=== PATIENT | male | born 1945 | race African-American/Black ===

== ENCOUNTER 2020-07-23 10:57 | Inpatient (IN) | payer OTHER, MEDICARE ==
--- NOTE | 2020-07-23 11:24 | Emergency Department Report ---
ED General Adult HPI - General Chief complaint: Weakness Stated complaint: SOB/WEAKNESS PUI?: Yes Time Seen by Provider: 07/23/20 11:07 Source: patient, EMS ( EMS documentation not available at time of chart dictation ), RN notes reviewed Mode of arrival: Stretcher Limitations: No Limitations, Language Barrier - History of Present Illness Initial comments: The patient was evaluated in the emergency department for symptoms described in the history of present illness. He/she was evaluated in the context of the global COVID-19 pandemic, which necessitated consideration that the patient might be at risk for infection with the virus that causes COVID-19. Institutional protocols and algorithms that pertain to the evaluation of patients at risk for COVID-19 are in a state of rapid change based on information released by regulatory bodies including the CDC and federal and state organizations. These policies and algorithms were followed during the patient's care in the emergency department. Please note that these policies, procedures and recommendations changed on a rapid basis. Patient is a 75-year-old gentleman. He reportedly has a history of heart disease. During the entire history and physical examination, I had on complete personal protective equipment. History obtained by speaking to the patient, and by obtaining collateral information from nursing team, who is conversant/fluid in the patient's [place] language. I called up our peer support specialist service, waited on the phone for 10 minutes, was disconnected, and was not able to obtain a formal [place] peer support specialist. The patient was reportedly diagnosed with COVID-19 this past Sunday, 5 days ago. Apparently, 1 day before that, he began to have generalized malaise and weakness. He was brought in today by EMS with a complaint of malaise, weakness, shortness of breath. Nursing team informs me that the patient was hypoxic in the field, with a saturation of 88%. The patient indicates he is not having physical pain at this time. Patient not accompanied by friends or family at this time for additional information or collateral information. -: Gradual, days(s) - Related Data Allergies Allergy/AdvReac Type Severity Reaction Status Date / Time No Known Allergies Allergy Unverified 07/23/20 12:26 ED Review of Systems ROS: Stated complaint: SOB/WEAKNESS Other details as noted in HPI Constitutional: fever, malaise, weakness ENT: congestion Respiratory: cough, SOB with exertion Neurological: weakness ED Physical Exam - General Limitations: Language Barrier, Physical Limitation General appearance: alert - Head Head exam: Present: atraumatic, normocephalic - Eye Eye exam: Present: normal appearance, EOMI. Absent: nystagmus - ENT ENT exam: Present: normal exam, normal orophraynx, mucous membranes moist, normal external ear exam - Neck Neck exam: Present: normal inspection, full ROM. Absent: tenderness, meningismus - Respiratory Respiratory exam: Present: respiratory distress, rhonchi. Absent: wheezes, rales, stridor - Cardiovascular Cardiovascular Exam: Present: regular rate, normal rhythm, normal heart sounds. Absent: bradycardia, tachycardia, irregular rhythm, systolic murmur, diastolic murmur, rubs, gallop - GI/Abdominal GI/Abdominal exam: Present: soft. Absent: distended, tenderness, guarding, rebound, rigid, pulsatile mass - Rectal Rectal exam: Present: deferred - Extremities Exam Extremities exam: Present: normal inspection, full ROM, other (2+ pulses noted in the bilateral upper and lower extremities. There is no palpable cord. negative Homans sign. Muscular compartments are soft. The pelvis is stable.). Absent: pedal edema, calf tenderness - Back Exam Back exam: Present: normal inspection, full ROM. Absent: tenderness, CVA tenderness (R), CVA tenderness (L), paraspinal tenderness, vertebral tenderness - Neurological Exam Neurological exam: Present: alert, other (No facial droop. Tongue midline. Extraocular movements intact bilaterally. Facial sensation intact to light touch in V1, V2, V3 distribution bilaterally. 5 and a 5 strength in 4 extremities. Sensation intact to light touch in 4 extremities.) - Psychiatric Psychiatric exam: Present: normal affect, normal mood - Skin Skin exam: Present: warm, dry, intact, normal color. Absent: rash ED Course Vital Signs 07/23/20 11:11 Temperature 99.9 F H Pulse Rate 82 Respiratory 24 Rate Blood Pressure 134/57 O2 Sat by Pulse 98 Oximetry ED Medical Decision Making - Lab Data Result diagrams: 07/23/20 11:50 07/23/20 11:50 Vital Signs 07/23/20 11:11 Temperature 99.9 F H Pulse Rate 82 Respiratory 24 Rate Blood Pressure 134/57 O2 Sat by Pulse 98 Oximetry Lab Results 07/23/20 07/23/20 07/23/20 Range/Units 11:50 11:50 11:50 WBC 8.3 (4.5-11.0) K/mm3 RBC 3.68 (3.65-5.03) M/mm3 Hgb 10.8 (10.1-14.3) gm/dl Hct 32.3 (30.3-42.9) % MCV 88 (79-97) fl MCH 29 (28-32) pg MCHC 34 (30-34) % RDW 14.8 (13.2-15.2) % Plt Count 142 (140-440) K/mm3 Lymph % (Auto) 5.4 L (13.4-35.0) % [place] % (Auto) 4.3 (0.0-7.3) % Eos % (Auto) 0.1 (0.0-4.3) % Baso % (Auto) 0.2 (0.0-1.8) % Lymph # (Auto) 0.4 L (1.2-5.4) K/mm3 [place] # (Auto) 0.4 (0.0-0.8) K/mm3 Eos # (Auto) 0.0 (0.0-0.4) K/mm3 Baso # (Auto) 0.0 (0.0-0.1) K/mm3 Seg Neutrophils % 90.0 H (40.0-70.0) % Seg Neutrophils # 7.5 (1.8-7.7) K/mm3 D-Dimer 545.57 H (0-234) ng/mlDDU Sodium 136 L (137-145) mmol/L Potassium 3.5 L (3.6-5.0) mmol/L Chloride 102.3 (98-107) mmol/L Carbon Dioxide 24 (22-30) mmol/L Anion Gap 13 mmol/L BUN 13 (9-20) mg/dL Creatinine 0.9 (0.8-1.3) mg/dL Estimated GFR > 60 ml/min BUN/Creatinine Ratio 14 % Glucose 167 H (75-100) mg/dL Lactic Acid (0.7-2.0) mmol/L Calcium 8.2 L (8.4-10.2) mg/dL Magnesium (1.7-2.3) mg/dL Total Bilirubin 0.50 (0.1-1.2) mg/dL AST 47 H (5-40) units/L ALT 43 (7-56) units/L Alkaline Phosphatase 79 (35-129) units/L Lactate Dehydrogenase 291 H (91-180) units/L Total Creatine Kinase (55-170) units/L Troponin T < 0.010 (0.00-0.029) ng/mL C-Reactive Protein 29.20 H (0.00-1.30) mg/dL Total Protein 6.7 (6.3-8.2) g/dL Albumin 2.9 L (3.9-5) g/dL Albumin/Globulin Ratio 0.8 % 07/23/20 07/23/20 Range/Units 11:50 11:50 WBC (4.5-11.0) K/mm3 RBC (3.65-5.03) M/mm3 Hgb (10.1-14.3) gm/dl Hct (30.3-42.9) % MCV (79-97) fl MCH (28-32) pg MCHC (30-34) % RDW (13.2-15.2) % Plt Count (140-440) K/mm3 Lymph % (Auto) (13.4-35.0) % [place] % (Auto) (0.0-7.3) % Eos % (Auto) (0.0-4.3) % Baso % (Auto) (0.0-1.8) % Lymph # (Auto) (1.2-5.4) K/mm3 [place] # (Auto) (0.0-0.8) K/mm3 Eos # (Auto) (0.0-0.4) K/mm3 Baso # (Auto) (0.0-0.1) K/mm3 Seg Neutrophils % (40.0-70.0) % Seg Neutrophils # (1.8-7.7) K/mm3 D-Dimer (0-234) ng/mlDDU Sodium (137-145) mmol/L Potassium (3.6-5.0) mmol/L Chloride (98-107) mmol/L Carbon Dioxide (22-30) mmol/L Anion Gap mmol/L BUN (9-20) mg/dL Creatinine (0.8-1.3) mg/dL Estimated GFR ml/min BUN/Creatinine Ratio % Glucose (75-100) mg/dL Lactic Acid 2.00 (0.7-2.0) mmol/L Calcium (8.4-10.2) mg/dL Magnesium 1.80 (1.7-2.3) mg/dL Total Bilirubin (0.1-1.2) mg/dL AST (5-40) units/L ALT (7-56) units/L Alkaline Phosphatase (35-129) units/L Lactate Dehydrogenase (91-180) units/L Total Creatine Kinase 39 L (55-170) units/L Troponin T (0.00-0.029) ng/mL C-Reactive Protein (0.00-1.30) mg/dL Total Protein (6.3-8.2) g/dL Albumin (3.9-5) g/dL Albumin/Globulin Ratio % - EKG Data -: EKG Interpreted by Ok EKG shows normal: sinus rhythm Rate: normal - EKG Data When compared to previous EKG there are: previous EKG unavailable 07/23/20 14:07 Sinus rhythm, 87 bpm, normal axis, QTC is prolonged, motion artifact, right bundle branch block, the EKG is abnormal, the EKG is not a STEMI Do not have a prior EKG available for comparison at this time. - Radiology Data Radiology results: report reviewed, image reviewed Print Report Referring Physician: CHARY WILSON Patient Name: PENNY SAUCEDO Date of : 1945 Sex: Male Report Date: 2020-07-23 Report Status: Finalized Findings [facility] [address] [place] [address] XRay Report Signed Patient: PENNY SAUCEDO MR#: [id number] 46 : 1945 ct:[id number] Age/Sex: 75 / M ADM Date: 07/23/20 Loc: ED Attending Dr: Ordering Physician: CHARY WILSON MD Date of Service: 07/23/20 Procedure(s): XR chest 1V ap Accession Number(s): [id number] cc: CHARY WILSON MD Fluoro Time In Minutes: CHEST 1 VIEW INDICATION: SOB COVID. COMPARISON: 06/10/2019 FINDINGS: Support devices: None. Heart: Within normal limits. Previous CABG changes are noted. Lungs/Pleura: Subtle airspace opacities are identified in the right upper lobe and left lower lobe which could be infectious in origin. No consolidation, pleural effusion or pneumothorax. Additional findings: None. IMPRESSION: Subtle bilateral airspace opacities as described. Viral infection could be considered. Signer Name: Shamar Juarez Jr, MD Signed: 07/23/2020 12:36 PM Workstation Name: [id number] Transcribed By: TTR Dictated By: SHAMAR JUAREZ JR, MD Electronically Authenticated By: SHAMAR JUAREZ JR, MD Signed Date/Time: 07/23/20 1236 DD/ 1235 TD/TT: - Medical Decision Making Differential diagnosis, including but not limited to: COVID-19, pneumonia, bacterial versus viral Assessment and plan: 75-year-old gentleman presenting during the Covid pandemic with hypoxia, and typical constitutional symptoms. Patient meets criteria for hospitalization/admission secondary to hypoxia, need for supplemental oxygen requirement, advanced age, and medical comorbidities. Laboratory studies are sent to risk stratify patient for cytokine storm. Patient will be treated empirically with steroids given hypoxia, ceftriaxone, and azithromycin. He reported to nursing team that he was taking quite a bit of acetaminophen, so we will check an acetaminophen level. This is pending at this time. As a courtesy, we will place an ID consult and defer to the inpatient team to further follow this up. The hospital physician, Dr. Angel Wang has agreed to admit the patient to the medical service for the aforementioned. Critical Care Time: Yes Critical care time in (mins) excluding proc time.: 35 Critical care attestation.: If time is entered above; I have spent that time in minutes in the direct care of this critically ill patient, excluding procedure time. ED Disposition Clinical Impression: Hypoxia, Suspected 2019 novel coronavirus infection, Pulmonary infiltrates Disposition: OP ADMIT IP TO THIS HOSP Is pt being admited?: Yes Does the pt Need Aspirin: No Condition: Serious
[2020-07-23 12:26] LABS: Basophils % (Auto) 0.2 % (0.0-1.8); Eosinophils % (Auto) 0.1 % (0.0-4.3); Hematocrit 32.3 % (30.3-42.9); Hemoglobin 10.8 gm/dl (10.1-14.3); Lymphocytes # (Auto) 0.4 K/mm3 (1.2-5.4); Lymphocytes % (Auto) 5.4 % (13.4-35.0); Mean Corpuscular HGB Conc 34 % (30-34); Mean Corpuscular Volume 88 fl (79-97); Monocytes # (Auto) 0.4 K/mm3 (0.0-0.8); Monocytes % (Auto) 4.3 % (0.0-7.3); Platelet Count 142 K/mm3 (140-440); Red Blood Count 3.68 M/mm3 (3.65-5.03); Red Cell Distribution Width 14.8 % (13.2-15.2)
--- NOTE | 2020-07-23 12:40 | XRay Report ---
CHEST 1 VIEW INDICATION: SOB COVID. COMPARISON: 06/10/2019 FINDINGS: Support devices: None. Heart: Within normal limits. Previous CABG changes are noted. Lungs/Pleura: Subtle airspace opacities are identified in the right upper lobe and left lower lobe wh ich could be infectious in origin. No consolidation, pleural effusion or pneumothorax. Additional findings: None. IMPRESSION: Subtle bilateral airspace opacities as described. Viral infection could be considered. Signer Name: Shamar Juarez Jr, MD Signed: 07/23/2020 12:36 PM Workstation Name: [id number]
[2020-07-23] MEDS ORDERED: SODIUM CHLORIDE 0.9% 500 ML 500 ML IV ONE (12:53)
[2020-07-23] MEDS ORDERED: cefTRIAXone/NS 1 GM/50 ML 1 GM/50 ML BAG IV ONE ×2 (12:53→13:30)
[2020-07-23] MEDS ORDERED: dexAMETHasone 4 MG/ML VIAL IV ONE (12:53)
[2020-07-23 13:16] LABS: Alanine Aminotransferase 43 units/L (7-56); Albumin 2.9 g/dL (3.9-5); BUN/Creatinine Ratio 14; Blood Urea Nitrogen 13 mg/dL (9-20); Calcium 8.2 mg/dL (8.4-10.2); Hemolysis Index 2
[2020-07-23] MEDS ORDERED: dexAMETHasone 4 MG/ML VIAL ONE (13:30)
[2020-07-23] MEDS ORDERED: AZITHROMYCIN 500 MG in SODIUM CHLORIDE 0.9% 250ML 250 ML IV NR (13:30)
[2020-07-23] MEDS ORDERED: SODIUM CHLORIDE 0.9% 500 ML 500 ML ONE (13:30)
[2020-07-23 16:12] LABS: Bilirubin,Urine NEG (Negative); Blood,Urine NEG (Negative); Color,Urine Yellow (Yellow); Urobilinogen,Urine < 2.0 mg/dL (<2.0); WBC,Urine < 1.0 /HPF (0.0-6.0)
--- NOTE | 2020-07-23 23:32 | History and Physical Report ---
History of Present Illness Date of examination: 07/23/20 Date of admission: 07/23/20 13:00 Chief complaint: Shortness of breath and cough for 3 days. History of present illness: 75-year-old Malt[place] male diagnosed significant past medical history comes in for increasing shortness of breath and generalized weakness. 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 Patient has generalized malaise and weakness. Patient was brought in by EMS because of shortness of breath. Patient was hypoxic with a saturation of 88% in the field. With oxygenation sup plements oxygen O2 sats improved to 93--94. Language barrier present. Could not get a proper history from the patient. Tried to use the metal furniture repairer service but was kept on hold for a long time. No fever or chills at this point. Medications and Allergies Allergies Allergy/AdvReac Type Severity Reaction Status Date / Time No Known Allergies Allergy Verified 07/23/20 15:11 Exam - Constitutional Vitals: Temp Pulse Resp BP Pulse Ox 99.0 F 81 18 127/58 95 07/23/20 20:24 07/23/20 20:24 07/23/20 20:24 07/23/20 21:25 07/23/20 21:12 General appearance: Present: no acute distress, well-nourished - EENT Eyes: Present: PERRL ENT: hearing intact, clear oral mucosa - Neck Neck: Present: supple, normal ROM - Respiratory Respiratory effort: normal Respiratory: bilateral: CTA, rhonchi (Scattered) - Cardiovascular Heart rate: 78 Rhythm: regular Heart Sounds: Present: S1 & S2. Absent: rub, click - Extremities Extremities: pulses symmetrical, No edema Peripheral Pulses: within normal limits - Abdominal General gastrointestinal: Present: soft, non-tender, non-distended, normal bowel sounds Male genitourinary: Present: normal - Integumentary Integumentary: Present: clear, warm, dry - Musculoskeletal Musculoskeletal: gait normal, strength equal bilaterally - Psychiatric Psychiatric: appropriate mood/affect, intact judgment & insight - Neurologic Neurologic: CNII-XII intact, moves all extremities HEART Score - HEART Score Troponin: Troponin T < 0.010 ng/mL (0.00-0.029) 07/23/20 11:50 Results - Labs CBC & Chem 7: 07/24/20 05:17 07/23/20 11:50 Labs: Laboratory Last Values WBC 8.3 K/mm3 (4.5-11.0) 07/23/20 11:50 RBC 3.68 M/mm3 (3.65-5.03) 07/23/20 11:50 Hgb 10.8 gm/dl (10.1-14.3) 07/23/20 11:50 Hct 32.3 % (30.3-42.9) 07/23/20 11:50 MCV 88 fl (79-97) 07/23/20 11:50 MCH 29 pg (28-32) 07/23/20 11:50 MCHC 34 % (30-34) 07/23/20 11:50 RDW 14.8 % (13.2-15.2) 07/23/20 11:50 Plt Count 142 K/mm3 (140-440) 07/23/20 11:50 Lymph % (Auto) 5.4 % (13.4-35.0) L 07/23/20 11:50 [place] % (Auto) 4.3 % (0.0-7.3) 07/23/20 11:50 Eos % (Auto) 0.1 % (0.0-4.3) 07/23/20 11:50 Baso % (Auto) 0.2 % (0.0-1.8) 07/23/20 11:50 Lymph # (Auto) 0.4 K/mm3 (1.2-5.4) L 07/23/20 11:50 [place] # (Auto) 0.4 K/mm3 (0.0-0.8) 07/23/20 11:50 Eos # (Auto) 0.0 K/mm3 (0.0-0.4) 07/23/20 11:50 Baso # (Auto) 0.0 K/mm3 (0.0-0.1) 07/23/20 11:50 Seg Neutrophils % 90.0 % (40.0-70.0) H 07/23/20 11:50 Seg Neutrophils # 7.5 K/mm3 (1.8-7.7) 07/23/20 11:50 D-Dimer 545.57 ng/mlDDU (0-234) H 07/23/20 11:50 Sodium 136 mmol/L (137-145) L 07/23/20 11:50 Potassium 3.5 mmol/L (3.6-5.0) L 07/23/20 11:50 Chloride 102.3 mmol/L (98-107) 07/23/20 11:50 Carbon Dioxide 24 mmol/L (22-30) 07/23/20 11:50 Anion Gap 13 mmol/L 07/23/20 11:50 BUN 13 mg/dL (9-20) 07/23/20 11:50 Creatinine 0.9 mg/dL (0.8-1.3) 07/23/20 11:50 Estimated GFR > 60 ml/min 07/23/20 11:50 BUN/Creatinine Ratio 14 % 07/23/20 11:50 Glucose 167 mg/dL (75-100) H 07/23/20 11:50 Lactic Acid 1.00 mmol/L (0.7-2.0) 07/23/20 16:10 Calcium 8.2 mg/dL (8.4-10.2) L 07/23/20 11:50 Magnesium 1.80 mg/dL (1.7-2.3) 07/23/20 11:50 Ferritin 1067.0 ng/mL (30.0-300.0) H 07/23/20 11:50 Total Bilirubin 0.50 mg/dL (0.1-1.2) 07/23/20 11:50 AST 47 units/L (5-40) H 07/23/20 11:50 ALT 43 units/L (7-56) 07/23/20 11:50 Alkaline Phosphatase 79 units/L (35-129) 07/23/20 11:50 Lactate Dehydrogenase 291 units/L (91-180) H 07/23/20 11:50 Total Creatine Kinase 39 units/L (55-170) L 07/23/20 11:50 Troponin T < 0.010 ng/mL (0.00-0.029) 07/23/20 11:50 C-Reactive Protein 29.20 mg/dL (0.00-1.30) H 07/23/20 11:50 Total Protein 6.7 g/dL (6.3-8.2) 07/23/20 11:50 Albumin 2.9 g/dL (3.9-5) L 07/23/20 11:50 Albumin/Globulin Ratio 0.8 % 07/23/20 11:50 Urine Color Yellow (Yellow) 07/23/20 15:51 Urine Turbidity Clear (Clear) 07/23/20 15:51 Urine pH 7.0 (5.0-7.0) 07/23/20 15:51 Ur Specific [place] 1.012 (1.003-1.030) 07/23/20 15:51 Urine Protein 30 mg/dl mg/dL (Negative) 07/23/20 15:51 Urine Glucose (UA) Neg mg/dL (Negative) 07/23/20 15:51 Urine Ketones Tr mg/dL (Negative) 07/23/20 15:51 Urine Blood Neg (Negative) 07/23/20 15:51 Urine Nitrite Neg (Negative) 07/23/20 15:51 Urine Bilirubin Neg (Negative) 07/23/20 15:51 Urine Urobilinogen < 2.0 mg/dL (<2.0) 07/23/20 15:51 Ur Leukocyte Esterase Neg (Negative) 07/23/20 15:51 Urine WBC (Auto) < 1.0 /HPF (0.0-6.0) 07/23/20 15:51 Urine RBC (Auto) 4.0 /HPF (0.0-6.0) 07/23/20 15:51 Acetaminophen 5.0 ug/mL (10.0-30.0) L 07/23/20 13:02 Microbiology: Microbiology 07/23/20 11:50 Peripheral/Venous Blood Culture - Preliminary Culture in Progress 07/23/20 11:50 Peripheral/Venous Blood Culture - Preliminary Culture in Progress - Imaging and Cardiology Chest x-ray: report reviewed Imaging and Cardiology: CXR FINDINGS: Support devices: None. Heart: Within normal limits. Previous CABG changes are noted. Lungs/Pleura: Subtle airspace opacities are identified in the right upper lobe and left lower lobe which could be infectious in origin. No consolidation, pleural effusion or pneumothorax. Additional findings: None . IMPRESSION: Subtle bilateral airspace opacities as described. Viral infection could be considered. Khan/IV: IV Catheter Type [Right Wrist] Peripheral IV Assessment and Plan Advance Directives: Yes (Full code) VTE prophylaxis?: Chemical Plan of care discussed with patient/family: Yes - Patient Problems (1) Acute respiratory failure with hypoxia Current Visit: Yes Status: Acute Plan to address problem: Patient on oxygen supplements. Now requiring minimal oxygen supplements 3 to 5 L Patient admitted in isolation Possible coronavirus infection Coronavirus PCR requested (2) Bilateral pneumonia Current Visit: Yes Status: Acute Plan to address problem: For the time being treated as community-acquired pneumonia Patient initiated on IV ceftriaxone and IV Zithromax. (3) Suspected 2019 novel coronavirus infection Current Visit: Yes Status: Acute Plan to address problem: Check coronavirus PCR Patient is apparently coronavirus PCR +4 days ago on Sunday which is 07/19/2020 (4) Hyponatremia Current Visit: Yes Status: Acute Plan to address problem: Very mild Trend the sodium levels No IV fluids were given because of the possibility of coronavirus (5) Anemia Current Visit: Yes Status: Chronic Qualifiers: Anemia type: unspecified type Qualified Code(s): D64.9 - Anemia, unspecified Plan to address problem: Anemia work-up (6) DVT prophylaxis Current Visit: Yes Status: Acute Plan to address problem: Patient initiated on Lovenox and GI prophylaxis
[2020-07-23] MEDS ORDERED: ACETAMINOPHEN 325 MG TAB PO PRN (23:34)
[2020-07-23] MEDS ORDERED: ONDANSETRON 4 MG/2 ML INJ IV PRN (23:34)
[2020-07-24 06:34] LABS: Basophils % (Auto) 0.2 % (0.0-1.8); Hematocrit 31.8 % (35.5-45.6); Hemoglobin 10.7 gm/dl (11.8-15.2); Lymphocytes # (Auto) 0.5 K/mm3 (1.2-5.4); Lymphocytes % (Auto) 7.9 % (13.4-35.0); Mean Corpuscular HGB Conc 34 % (32-34); Mean Corpuscular Volume 87 fl (84-94); Monocytes # (Auto) 0.4 K/mm3 (0.0-0.8); Monocytes % (Auto) 5.7 % (0.0-7.3); Platelet Count 153 K/mm3 (140-440); Red Blood Count 3.67 M/mm3 (3.65-5.03); Red Cell Distribution Width 14.8 % (13.2-15.2)
--- NOTE | 2020-07-24 06:52 | History and Physical Report ---
History of Present Illness Date of examination: 07/23/20 Date of admission: 07/23/20 13:00 Chief complaint: Shortness of breath and cough for 3 days. History of present illness: 75-year-old Nepali male diagnosed significant past medical history comes in for increasing shortness of breath and generalized weakness. 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 Patient has generalized malaise and weakness. Patient was brought in by EMS because of shortness of breath. Patient was hypoxic with a saturation of 88% in the field. With oxygenation sup plements oxygen O2 sats improved to 93--94. Language barrier present. Could not get a proper history from the patient. Tried to use the reinforced ironworker service but was kept on hold for a long time. No fever or chills at this point. Past History Past Medical History: No medical history Past Surgical History: No surgical history Social history: full code Family history: hypertension Medications and Allergies Allergies Allergy/AdvReac Type Severity Reaction Status Date / Time No Known Allergies Allergy Verified 07/23/20 15:11 Active Meds: Active Medications Acetaminophen (Tylenol) 650 mg PO Q4H PRN PRN Reason: Pain MILD(1-3)/Fever >100.5/PHILLIPS Cholecalciferol (Vitamin D3) 10,000 unit PO DAILY [facility] Dexamethasone (Decadron) 8 mg IV Q24HR [facility] Enoxaparin Sodium (Enoxaparin) 40 mg SUB-Q QDAY@2200 AZAR; Protocol Famotidine (Pepcid) 20 mg PO BID AZAR Hydromorphone HCl (Dilaudid) 0.5 mg IV Q3H PRN PRN Reason: Pain , Severe (7-10) Ceftriaxone Sodium (Rocephin/Ns 2 Gm/100 Ml) 2 gm in 100 mls @ 200 mls/hr IV Q24HR [facility]AR; Protocol Azithromycin 500 mg/ Sodium (Chloride) 250 mls @ 250 mls/hr IV Q24HR AZAR; Protocol Ondansetron HCl (Zofran) 4 mg IV Q8H PRN PRN Reason: Nausea And Vomiting Oxycodone/Acetaminophen (Percocet 5/325) 1 tab PO Q6H PRN PRN Reason: Pain, Moderate (4-6) Sodium Chloride (Sodium Chloride Flush Syringe 10 Ml) 10 ml IV BID AZAR Sodium Chloride (Sodium Chloride Flush Syringe 10 Ml) 10 ml IV PRN PRN PRN Reason: LINE FLUSH Zinc Sulfate (Zinc Sulfate) 220 mg PO QDAY AZAR Review of Systems All systems: negative Respiratory: cough, shortness of breath, congestion Exam - Constitutional Vitals: Temp Pulse Resp BP Pulse Ox 97.8 F 83 16 129/61 90 07/24/20 03:42 07/24/20 03:42 07/24/20 03:42 07/24/20 03:42 07/24/20 03:42 General appearance: Present: mild distress, well-nourished - EENT Eyes: Present: PERRL ENT: hearing intact, clear oral mucosa - Neck Neck: Present: supple, normal ROM - Respiratory Respiratory effort: normal Respiratory: bilateral: CTA, rhonchi (Scattered), wheezing - Cardiovascular Heart rate: 78 Rhythm: regular Heart Sounds: Present: S1 & S2. Absent: rub, click - Extremities Extremities: pulses symmetrical, No edema Peripheral Pulses: within normal limits - Abdominal General gastrointestinal: Present: soft, non-tender, non-distended, normal bowel sounds Male genitourinary: Present: normal - Integumentary Integumentary: Present: clear, warm, dry - Musculoskeletal Musculoskeletal: gait normal, strength equal bilaterally - Psychiatric Psychiatric: appropriate mood/affect, intact judgment & insight - Neurologic Neurologic: CNII-XII intact, moves all extremities HEART Score - HEART Score Troponin: Troponin T < 0.010 ng/mL (0.00-0.029) 07/23/20 11:50 Results - Labs CBC & Chem 7: 07/24/20 05:17 07/23/20 11:50 Labs: Laboratory Last Values WBC 6.3 K/mm3 (4.5-11.0) 07/24/20 05:17 RBC 3.67 M/mm3 (3.65-5.03) 07/24/20 05:17 Hgb 10.7 gm/dl (11.8-15.2) L 07/24/20 05:17 Hct 31.8 % (35.5-45.6) L 07/24/20 05:17 MCV 87 fl (84-94) 07/24/20 05:17 MCH 29 pg (28-32) 07/24/20 05:17 MCHC 34 % (32-34) 07/24/20 05:17 RDW 14.8 % (13.2-15.2) 07/24/20 05:17 Plt Count 153 K/mm3 (140-440) 07/24/20 05:17 Lymph % (Auto) 7.9 % (13.4-35.0) L 07/24/20 05:17 [place] % (Auto) 5.7 % (0.0-7.3) 07/24/20 05:17 Eos % (Auto) 0.0 % (0.0-4.3) 07/24/20 05:17 Baso % (Auto) 0.2 % (0.0-1.8) 07/24/20 05:17 Lymph # (Auto) 0.5 K/mm3 (1.2-5.4) L 07/24/20 05:17 [place] # (Auto) 0.4 K/mm3 (0.0-0.8) 07/24/20 05:17 Eos # (Auto) 0.0 K/mm3 (0.0-0.4) 07/24/20 05:17 Baso # (Auto) 0.0 K/mm3 (0.0-0.1) 07/24/20 05:17 Seg Neutrophils % 86.2 % (40.0-70.0) H 07/24/20 05:17 Seg Neutrophils # 5.4 K/mm3 (1.8-7.7) 07/24/20 05:17 D-Dimer 545.57 ng/mlDDU (0-234) H 07/23/20 11:50 Sodium 136 mmol/L (137-145) L 07/23/20 11:50 Potassium 3.5 mmol/L (3.6-5.0) L 07/23/20 11:50 Chloride 102.3 mmol/L (98-107) 07/23/20 11:50 Carbon Dioxide 24 mmol/L (22-30) 07/23/20 11:50 Anion Gap 13 mmol/L 07/23/20 11:50 BUN 13 mg/dL (9-20) 07/23/20 11:50 Creatinine 0.9 mg/dL (0.8-1.3) 07/23/20 11:50 Estimated GFR > 60 ml/min 07/23/20 11:50 BUN/Creatinine Ratio 14 % 07/23/20 11:50 Glucose 167 mg/dL (75-100) H 07/23/20 11:50 Hemoglobin A1c 6.8 % (4-6) H 07/23/20 11:50 Lactic Acid 1.00 mmol/L (0.7-2.0) 07/23/20 16:10 Calcium 8.2 mg/dL (8.4-10.2) L 07/23/20 11:50 Magnesium 1.80 mg/dL (1.7-2.3) 07/23/20 11:50 Ferritin 1067.0 ng/mL (30.0-300.0) H 07/23/20 11:50 Total Bilirubin 0.50 mg/dL (0.1-1.2) 07/23/20 11:50 AST 47 units/L (5-40) H 07/23/20 11:50 ALT 43 units/L (7-56) 07/23/20 11:50 Alkaline Phosphatase 79 units/L (35-129) 07/23/20 11:50 Lactate Dehydrogenase 291 units/L (91-180) H 07/23/20 11:50 Total Creatine Kinase 39 units/L (55-170) L 07/23/20 11:50 Troponin T < 0.010 ng/mL (0.00-0.029) 07/23/20 11:50 C-Reactive Protein 29.20 mg/dL (0.00-1.30) H 07/23/20 11:50 Total Protein 6.7 g/dL (6.3-8.2) 07/23/20 11:50 Albumin 2.9 g/dL (3.9-5) L 07/23/20 11:50 Albumin/Globulin Ratio 0.8 % 07/23/20 11:50 Urine Color Yellow (Yellow) 07/23/20 15:51 Urine Turbidity Clear (Clear) 07/23/20 15:51 Urine pH 7.0 (5.0-7.0) 07/23/20 15:51 Ur Specific [place] 1.012 (1.003-1.030) 07/23/20 15:51 Urine Protein 30 mg/dl mg/dL (Negative) 07/23/20 15:51 Urine Glucose (UA) Neg mg/dL (Negative) 07/23/20 15:51 Urine Ketones Tr mg/dL (Negative) 07/23/20 15:51 Urine Blood Neg (Negative) 07/23/20 15:51 Urine Nitrite Neg (Negative) 07/23/20 15:51 Urine Bilirubin Neg (Negative) 07/23/20 15:51 Urine Urobilinogen < 2.0 mg/dL (<2.0) 07/23/20 15:51 Ur Leukocyte Esterase Neg (Negative) 07/23/20 15:51 Urine WBC (Auto) < 1.0 /HPF (0.0-6.0) 07/23/20 15:51 Urine RBC (Auto) 4.0 /HPF (0.0-6.0) 07/23/20 15:51 Acetaminophen 5.0 ug/mL (10.0-30.0) L 07/23/20 13:02 Microbiology: Microbiology 07/23/20 11:50 Peripheral/Venous Blood Culture - Preliminary Culture in Progress 07/23/20 11:50 Peripheral/Venous Blood Culture - Preliminary Culture in Progress - Imaging and Cardiology Chest x-ray: report reviewed (Chest x-ray bilateral airspace disease) Khan/IV: Voiding Method Toilet IV Catheter Type [Right Wrist] Peripheral IV Assessment and Plan Advance Directives: Yes (Full code) VTE prophylaxis?: Chemical Plan of care discussed with patient/family: Yes - Patient Problems (1) Acute respiratory failure with hypoxia Current Visit: Yes Status: Acute Plan to address problem: Patient on oxygen supplements. Now requiring minimal oxygen supplements 3 to 5 L Patient admitted in isolation Possible coronavirus infection Coronavirus PCR requested (2) Bilateral pneumonia Current Visit: Yes Status: Acute Plan to address problem: For the time being treated as community-acquired pneumonia Patient initiated on IV ceftriaxone and IV Zithromax. (3) Suspected 2019 novel coronavirus infection Current Visit: Yes Status: Acute Plan to address problem: Check coronavirus PCR Patient is apparently coronavirus PCR +4 days ago on Sunday which is 07/19/2020 (4) Hyponatremia Current Visit: Yes Status: Acute Plan to address problem: Very mild Trend the sodium levels No IV fluids were given because of the possibility of coronavirus (5) Anemia Current Visit: Yes Status: Chronic Qualifiers: Anemia type: unspecified type Qualified Code(s): D64.9 - Anemia, unspecifie d Plan to address problem: Anemia work-up (6) DVT prophylaxis Current Visit: Yes Status: Acute Plan to address problem: Patient initiated on Lovenox and GI prophylaxis
[2020-07-24 07:04] LABS: Alanine Aminotransferase 43 units/L (7-56); Blood Urea Nitrogen 16 mg/dL (9-20); Calcium 8.2 mg/dL (8.4-10.2); Hemolysis Index 1
[2020-07-24 07:34] LABS: BUN/Creatinine Ratio 23
[2020-07-24 08:27] LABS: % Iron Saturation 17.45 %
[2020-07-24] MEDS ORDERED: AZITHROMYCIN 500 MG in SODIUM CHLORIDE 0.9% 250ML 250 ML IV SCH (10:00)
[2020-07-24] MEDS ORDERED: cefTRIAXone/NS 2 GM/100 ML 2 GM/100 ML BAG IV SCH (10:00)
[2020-07-24] MEDS: CHOLECALCIFEROL (VIT D3) 5,000 UNIT TAB PO SCH (10:53)
[2020-07-24] MEDS: ASCORBIC ACID 500 MG TAB PO SCH ×2 (10:53→22:05)
[2020-07-24] MEDS: FAMOTIDINE 20 MG TAB PO SCH ×2 (10:53→22:05)
[2020-07-24] MEDS: dexAMETHasone 4 MG/ML VIAL IV SCH (10:53)
[2020-07-24] MEDS: ZINC SULFATE 220 MG CAP PO SCH (10:54)
[2020-07-24] MEDS ORDERED: FUROSEMIDE 40 MG/4 ML INJ IV ONE ×2 (12:00→13:00)
--- NOTE | 2020-07-24 12:42 | Progress Note ---
Assessment and Plan Assessment and plan: 75-year-old Cypriot male diagnosed significant past medical history comes in for increasing shortness of breath and generalized weakness. 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 Patient has generalized malaise and weakness. Patient was brought in by EMS because of shortness of breath. Patient was hypoxic with a saturation of 88% in the field. With oxygenation supplements oxygen O2 sats improved to 93--94. Language barrier present. Could not get a proper history from the patient. Tried to use the business analyst project manager service but was kept on hold for a long time. No fever or chills at this point. 07/24: This morning patient sitting up reported chills and shaking making him come to the hospital, continue current management for COVID-19. Will give Lasix 20 mg IV x1. Continue to monitor inflammatory markers while awaiting ID input. Will initiate remdesivir due to hypoxia. (1) Acute respiratory failure with hypoxia Current Visit: Yes Status: Acute Plan to address problem: Patient on oxygen supplements. Now requiring minimal oxygen supplements 3 to 5 L Patient admitted in isolation Possible coronavirus infection Coronavirus PCR requested (2) Bilateral pneumonia Current Visit: Yes Status: Acute Plan to address problem: For the time being treated as community-acquired pneumonia Patient initiated on IV ceftriaxone and IV Zithromax. (3) Suspected 2019 novel coronavirus infection Current Visit: Yes Status: Acute Plan to address problem: Check coronavirus PCR Patient is apparently coronavirus PCR +4 days ago on Sunday which is 07/19/2020 (4) Hyponatremia Current Visit: Yes Status: Acute Plan to address problem: Very mild Trend the sodium levels No IV fluids were given because of the possibility of coronavirus (5) Anemia Current Visit: Yes Status: Chronic Qualifiers: Anemia type: unspecified type Qualified Code(s): D64.9 - Anemia, unspecified Plan to address problem: Anemia work-up (6) DVT prophylaxis Current Visit: Yes Status: Acute Plan to address problem: Patient initiated on Lovenox and GI prophylaxis History Interval history: Patient seen and examined resting comfortably no new complaints. Hospitalist Physical - Physical exam Narrative exam: General appearance: Present: mild distress, well-nourished - EENT Eyes: Present: PERRL ENT: hearing intact, clear oral mucosa - Neck Neck: Present: supple, normal ROM - Respiratory Respiratory effort: normal Respiratory: bilateral: CTA, rhonchi (Scattered), wheezing - Cardiovascular Heart rate: 78 Rhythm: regular Heart Sounds: Present: S1 & S2. Absent: rub, click - Extremities Extremities: pulses symmetrical, No edema Peripheral Pulses: within normal limits - Abdominal General gastrointestinal: Present: soft, non-tender, non-distended, normal bowel sounds Male genitourinary: Present: normal - Integumentary Integumentary: Present: clear, warm, dry - Musculoskeletal Musculoskeletal: gait normal, strength equal bilaterally - Psychiatric Psychiatric: appropriate mood/affect, intact judgment & insight - Neurologic Neurologic: CNII-XII intact, moves all extremities - Constitutional Vitals: Temp Pulse Resp BP Pulse Ox 97.8 F 83 16 129/61 90 07/24/20 03:42 07/24/20 03:42 07/24/20 03:42 07/24/20 03:42 07/24/20 03:42 General appearance: Present: mild distress, well-nourished HEART Score - HEART Score Troponin: Troponin T < 0.010 ng/mL (0.00-0.029) 07/23/20 11:50 Results - Labs CBC & Chem 7: 07/24/20 05:17 07/24/20 05:17 Labs: Laboratory Last Values WBC 6.3 K/mm3 (4.5-11.0) 07/24/20 05:17 RBC 3.67 M/mm3 (3.65-5.03) 07/24/20 05:17 Hgb 10.7 gm/dl (11.8-15.2) L 07/24/20 05:17 Hct 31.8 % (35.5-45.6) L 07/24/20 05:17 MCV 87 fl (84-94) 07/24/20 05:17 MCH 29 pg (28-32) 07/24/20 05:17 MCHC 34 % (32-34) 07/24/20 05:17 RDW 14.8 % (13.2-15.2) 07/24/20 05:17 Plt Count 153 K/mm3 (140-440) 07/24/20 05:17 Lymph % (Auto) 7.9 % (13.4-35.0) L 07/24/20 05:17 [place] % (Auto) 5.7 % (0.0-7.3) 07/24/20 05:17 Eos % (Auto) 0.0 % (0.0-4.3) 07/24/20 05:17 Baso % (Auto) 0.2 % (0.0-1.8) 07/24/20 05:17 Lymph # (Auto) 0.5 K/mm3 (1.2-5.4) L 07/24/20 05:17 [place] # (Auto) 0.4 K/mm3 (0.0-0.8) 07/24/20 05:17 Eos # (Auto) 0.0 K/mm3 (0.0-0.4) 07/24/20 05:17 Baso # (Auto) 0.0 K/mm3 (0.0-0.1) 07/24/20 05:17 Seg Neutrophils % 86.2 % (40.0-70.0) H 07/24/20 05:17 Seg Neutrophils # 5.4 K/mm3 (1.8-7.7) 07/24/20 05:17 D-Dimer 545.57 ng/mlDDU (0-234) H 07/23/20 11:50 Sodium 140 mmol/L (137-145) 07/24/20 05:17 Potassium 3.8 mmol/L (3.6-5.0) 07/24/20 05:17 Chloride 105.2 mmol/L (98-107) 07/24/20 05:17 Carbon Dioxide 22 mmol/L (22-30) 07/24/20 05:17 Anion Gap 17 mmol/L 07/24/20 05:17 BUN 16 mg/dL (9-20) 07/24/20 05:17 Creatinine 0.7 mg/dL (0.8-1.3) L 07/24/20 05:17 Estimated GFR > 60 ml/min 07/24/20 05:17 BUN/Creatinine Ratio 23 % 07/24/20 05:17 Glucose 161 mg/dL (75-100) H 07/24/20 05:17 Hemoglobin A1c 6.8 % (4-6) H 07/23/20 11:50 Lactic Acid 1.00 mmol/L (0.7-2.0) 07/23/20 16:10 Calcium 8.2 mg/dL (8.4-10.2) L 07/24/20 05:17 Magnesium 1.80 mg/dL (1.7-2.3) 07/23/20 11:50 Iron 26 ug/dL (49-181) L 07/24/20 07:35 TIBC 149 mcg/dL (250-450) L 07/24/20 07:35 % Saturation 17.45 % 07/24/20 07:35 Transferrin 117 mg/dl (180-329) L 07/24/20 07:35 Ferritin 1067.0 ng/mL (30.0-300.0) H 07/23/20 11:50 Total Bilirubin 0.40 mg/dL (0.1-1.2) 07/24/20 05:17 AST 45 units/L (5-40) H 07/24/20 05:17 ALT 43 units/L (7-56) 07/24/20 05:17 Alkaline Phosphatase 78 units/L (35-129) 07/24/20 05:17 Lactate Dehydrogenase 291 units/L (91-180) H 07/23/20 11:50 Total Creatine Kinase 39 units/L (55-170) L 07/23/20 11:50 Troponin T < 0.010 ng/mL (0.00-0.029) 07/23/20 11:50 C-Reactive Protein 29.20 mg/dL (0.00-1.30) H 07/23/20 11:50 Total Protein 6.8 g/dL (6.3-8.2) 07/24/20 05:17 Albumin 3.0 g/dL (3.9-5) L 07/24/20 05:17 Albumin/Globulin Ratio 0.8 % 07/24/20 05:17 Vitamin B12 688.1 pg/mL (211-911) 07/24/20 07:35 Procalcitonin 0.49 ng/mL (<0.15) 07/23/20 11:50 Urine Color Yellow (Yellow) 07/23/20 15:51 Urine Turbidity Clear (Clear) 07/23/20 15:51 Urine pH 7.0 (5.0-7.0) 07/23/20 15:51 Ur Specific [place] 1.012 (1.003-1.030) 07/23/20 15:51 Urine Protein 30 mg/dl mg/dL (Negative) 07/23/20 15:51 Urine Glucose (UA) Neg mg/dL (Negative) 07/23/20 15:51 Urine Ketones Tr mg/dL (Negative) 07/23/20 15:51 Urine Blood Neg (Negative) 07/23/20 15:51 Urine Nitrite Neg (Negative) 07/23/20 15:51 Urine Bilirubin Neg (Negative) 07/23/20 15:51 Urine Urobilinogen < 2.0 mg/dL (<2.0) 07/23/20 15:51 Ur Leukocyte Esterase Neg (Negative) 07/23/20 15:51 Urine WBC (Auto) < 1.0 /HPF (0.0-6.0) 07/23/20 15:51 Urine RBC (Auto) 4.0 /HPF (0.0-6.0) 07/23/20 15:51 Acetaminophen 5.0 ug/mL (10.0-30.0) L 07/23/20 13:02 Microbiology: Microbiology 07/23/20 11:50 Peripheral/Venous Blood Culture - Preliminary Culture in Progress 07/23/20 11:50 Peripheral/Venous Blood Culture - Preliminary Culture in Progress Khan/IV: Voiding Method Toilet IV Catheter Type [Right Wrist] Peripheral IV Active Medications - Current Medications Current Medications: Generic Name Dose Route Start Last Admin Trade Name Freq PRN Reason Stop Dose Admin Acetaminophen 650 mg 07/23/20 23:34 Tylenol PO Q4H PRN Pain MILD(1-3)/Fever >100.5/PHILLIPS Ascorbic Acid 1,000 mg 07/24/20 10:00 07/24/20 10:53 Vitamin C PO 1,000 mg BID AZAR Administration Cholecalciferol 10,000 unit 07/24/20 10:00 07/24/20 10:53 Vitamin D3 PO 10,000 unit DAILY AZAR Administration Dexamethasone 8 mg 07/24/20 10:00 07/24/20 10:53 Decadron IV 8 mg Q24HR AZAR Administration Enoxaparin Sodium 40 mg 07/24/20 22:00 Enoxaparin SUB-Q QDAY@2200 [facility] Protocol Famotidine 20 mg 07/24/20 10:00 07/24/20 10:53 Pepcid PO 20 mg BID AZAR Administration Hydromorphone HCl 0.5 mg 07/23/20 23:34 Dilaudid IV Q3H PRN Pain , Severe (7-10) Ceftriaxone Sodium 2 gm in 100 mls @ 200 mls/hr 07/24/20 10:00 07/24/20 10:53 Rocephin/Ns 2 Gm/100 Ml IV 200 mls/hr Q24HR AZAR Administration Protocol Azithromycin 500 mg/ Sodium 250 mls @ 250 mls/hr 07/24/20 10:00 Chloride IV Q24HR AZAR Protocol Ondansetron HCl 4 mg 07/23/20 23:34 Zofran IV Q8H PRN Nausea And Vomiting Oxycodone/Acetaminophen 1 tab 07/23/20 23:34 Percocet 5/325 PO Q6H PRN Pain, Moderate (4-6) Sodium Chloride 10 ml 07/24/20 10:00 07/24/20 10:54 Sodium Chloride Flush Syringe 10 Ml IV 10 ml BID AZAR Administration Sodium Chloride 10 ml 07/23/20 23:34 Sodium Chloride Flush Syringe 10 Ml IV PRN PRN LINE FLUSH Zinc Sulfate 220 mg 07/24/20 10:00 07/24/20 10:54 Zinc Sulfate PO 220 mg QDAY AZAR Administration
[2020-07-24] MEDS ORDERED: REMDESIVIR 200 MG in SODIUM CHLORIDE 0.9% 250ML 250 ML IV ONE (12:43)
[2020-07-24] MEDS ORDERED: REMDESIVIR 100 MG VIAL IV ONE (12:45)
[2020-07-24] MEDS: SODIUM CHLORIDE 0.9% 50 ML IVPB IV SCH (21:06)
[2020-07-24] MEDS ORDERED: ENOXAPARIN 40 MG/0.4 ML INJ SUB-Q SCH (22:00)
[2020-07-25] MEDS: oxyCODONE /ACETAMINOPHEN 5-325MG TAB PO PRN ×2 (01:08→23:03)
[2020-07-25 06:56] LABS: Mean Corpuscular HGB Conc 34 % (32-34); Mean Corpuscular Volume 86 fl (84-94); Platelet Count 217 K/mm3 (140-440); Red Blood Count 3.86 M/mm3 (3.65-5.03); Red Cell Distribution Width 14.8 % (13.2-15.2)
[2020-07-25 07:09] LABS: BUN/Creatinine Ratio 29; Blood Urea Nitrogen 23 mg/dL (9-20); Calcium 8.3 mg/dL (8.4-10.2); Hemolysis Index 9
[2020-07-25] MEDS ORDERED: POTASSIUM CHLORIDE ER 20 MEQ TAB PO ONE (07:54)
--- NOTE | 2020-07-25 07:54 | Progress Note ---
Assessment and Plan Assessment and plan: 75-year-old Ivorian male diagnosed significant past medical history comes in for increasing shortness of breath and generalized weakness. 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 Patient has generalized malaise and weakness. Patient was brought in by EMS because of shortness of breath. Patient was hypoxic with a saturation of 88% in the field. With oxygenation supplements oxygen O2 sats improved to 93--94. Language barrier present. Could not get a proper history from the patient. Tried to use the air moving technician service but was kept on hold for a long time. No fever or chills at this point. 07/24: This morning patient sitting up reported chills and shaking making him come to the hospital, continue current management for COVID-19. Will give Lasix 20 mg IV x1. Continue to monitor inflammatory markers while awaiting ID input. Will initiate remdesivir due to hypoxia. 07/25: Noted on 6 liters, will give additional lasix today, change to full anticoagulation, will obtain CT chest and Doppler lower ext if no improvement in 24 to 48 hrs. Will consult pulmonary. If unable to wean oxygen down today will change to vapotherm. Spoke and updated patients Niece (1) Acute respiratory failure with hypoxia Current Visit: Yes Status: Acute Plan to address problem: Patient on oxygen supplements. initailly requiring minimal oxygen supplements 3 to 5 L Patient admitted in isolation Possible coronavirus infection Coronavirus PCR requested (2) Bilateral pneumonia Current Visit: Yes Status: Acute Plan to address problem: For the time being treated as community-acquired pneumonia Patient initiated on IV ceftriaxone and IV Zithromax. (3) Suspected 2019 novel coronavirus infection Current Visit: Yes Status: Acute Plan to address problem: Check coronavirus PCR Patient is apparently coronavirus PCR +4 days ago on Sunday which is 07/19/2020 (4) Hyponatremia Current Visit: Yes Status: Acute Plan to address problem: Very mild Trend the sodium levels No IV fluids were given because of the possibility of coronavirus (5) Anemia Current Visit: Yes Status: Chronic Qualifiers: Anemia type: unspecified type Qualified Code(s): D64.9 - Anemia, unspecified Plan to address problem: Anemia work-up (6) DVT prophylaxis Current Visit: Yes Status: Acute Plan to address problem: Patient initiated on Lovenox and GI prophylaxis History Interval history: Patient seen and examined resting comfortably no new complaints. Sitting up today reports some improvement in symptoms. Hospitalist Physical - Physical exam Narrative exam: General appearance: Present: mild distress, well-nourished - EENT Eyes: Present: PERRL ENT: hearing intact, clear oral mucosa - Neck Neck: Present: supple, normal ROM - Respiratory Respiratory effort: normal Respiratory: bilateral: CTA, rhonchi (Scattered), wheezing - Cardiovascular Heart rate: 78 Rhythm: regular Heart Sounds: Present: S1 & S2. Absent: rub, click - Extremities Extremities: pulses symmetrical, No edema Peripheral Pulses: within normal limits - Abdominal General gastrointestinal: Present: soft, non-tender, non-distended, normal bowel sounds Male genitourinary: Present: normal - Integumentary Integumentary: Present: clear, warm, dry - Musculoskeletal Musculoskeletal: gait normal, strength equal bilaterally - Psychiatric Psychiatric: appropriate mood/affect, intact judgment & insight - Neurologic Neurologic: CNII-XII intact, moves all extremities - Constitutional Vitals: Temp Pulse Resp BP Pulse Ox 98.4 F 85 20 146/73 94 07/24/20 21:32 07/24/20 21:32 07/25/20 02:08 07/24/20 21:32 07/24/20 22:00 General appearance: Present: mild distress, well-nourished HEART Score - HEART Score Troponin: Troponin T < 0.010 ng/mL (0.00-0.029) 07/23/20 11:50 Results - Labs CBC & Chem 7: 07/25/20 05:45 07/25/20 05:45 Labs: Laboratory Last Values WBC 13.5 K/mm3 (4.5-11.0) H 07/25/20 05:45 RBC 3.86 M/mm3 (3.65-5.03) 07/25/20 05:45 Hgb 11.0 gm/dl (11.8-15.2) L 07/25/20 05:45 Hct 33.0 % (35.5-45.6) L 07/25/20 05:45 MCV 86 fl (84-94) 07/25/20 05:45 MCH 29 pg (28-32) 07/25/20 05:45 MCHC 34 % (32-34) 07/25/20 05:45 RDW 14.8 % (13.2-15.2) 07/25/20 05:45 Plt Count 217 K/mm3 (140-440) 07/25/20 05:45 Lymph % (Auto) 7.9 % (13.4-35.0) L 07/24/20 05:17 [place] % (Auto) 5.7 % (0.0-7.3) 07/24/20 05:17 Eos % (Auto) 0.0 % (0.0-4.3) 07/24/20 05:17 Baso % (Auto) 0.2 % (0.0-1.8) 07/24/20 05:17 Lymph # (Auto) 0.5 K/mm3 (1.2-5.4) L 07/24/20 05:17 [place] # (Auto) 0.4 K/mm3 (0.0-0.8) 07/24/20 05:17 Eos # (Auto) 0.0 K/mm3 (0.0-0.4) 07/24/20 05:17 Baso # (Auto) 0.0 K/mm3 (0.0-0.1) 07/24/20 05:17 Seg Neutrophils % 86.2 % (40.0-70.0) H 07/24/20 05:17 Seg Neutrophils # 5.4 K/mm3 (1.8-7.7) 07/24/20 05:17 D-Dimer 1204.50 ng/mlDDU (0-234) H 07/25/20 05:45 Sodium 139 mmol/L (137-145) 07/25/20 05:45 Potassium 3.5 mmol/L (3.6-5.0) L 07/25/20 05:45 Chloride 103.6 mmol/L (98-107) 07/25/20 05:45 Carbon Dioxide 20 mmol/L (22-30) L 07/25/20 05:45 Anion Gap 19 mmol/L 07/25/20 05:45 BUN 23 mg/dL (9-20) H 07/25/20 05:45 Creatinine 0.8 mg/dL (0.8-1.3) 07/25/20 05:45 Estimated GFR > 60 ml/min 07/25/20 05:45 BUN/Creatinine Ratio 29 % 07/25/20 05:45 Glucose 187 mg/dL (75-100) H 07/25/20 05:45 Hemoglobin A1c 6.8 % (4-6) H 07/23/20 11:50 Lactic Acid 1.00 mmol/L (0.7-2.0) 07/23/20 16:10 Calcium 8.3 mg/dL (8.4-10.2) L 07/25/20 05:45 Magnesium 1.80 mg/dL (1.7-2.3) 07/23/20 11:50 Iron 26 ug/dL (49-181) L 07/24/20 07:35 TIBC 149 mcg/dL (250-450) L 07/24/20 07:35 % Saturation 17.45 % 07/24/20 07:35 Transferrin 117 mg/dl (180-329) L 07/24/20 07:35 Ferritin 1912.0 ng/mL (30.0-300.0) H 07/25/20 05:45 Total Bilirubin 0.40 mg/dL (0.1-1.2) 07/24/20 05:17 AST 45 units/L (5-40) H 07/24/20 05:17 ALT 43 units/L (7-56) 07/24/20 05:17 Alkaline Phosphatase 78 units/L (35-129) 07/24/20 05:17 Lactate Dehydrogenase 434 units/L (91-180) H 07/25/20 05:45 Total Creatine Kinase 39 units/L (55-170) L 07/23/20 11:50 Troponin T < 0.010 ng/mL (0.00-0.029) 07/23/20 11:50 C-Reactive Protein 10.60 mg/dL (0.00-1.30) H 07/25/20 05:45 Total Protein 6.8 g/dL (6.3-8.2) 07/24/20 05:17 Albumin 3.0 g/dL (3.9-5) L 07/24/20 05:17 Albumin/Globulin Ratio 0.8 % 07/24/20 05:17 Vitamin B12 688.1 pg/mL (211-911) 07/24/20 07:35 Procalcitonin 0.49 ng/mL (<0.15) 07/23/20 11:50 Urine Color Yellow (Yellow) 07/23/20 15:51 Urine Turbidity Clear (Clear) 07/23/20 15:51 Urine pH 7.0 (5.0-7.0) 07/23/20 15:51 Ur Specific Edward 1.012 (1.003-1.030) 07/23/20 15:51 Urine Protein 30 mg/dl mg/dL (Negative) 07/23/20 15:51 Urine Glucose (UA) Neg mg/dL (Negative) 07/23/20 15:51 Urine Ketones Tr mg/dL (Negative) 07/23/20 15:51 Urine Blood Neg (Negative) 07/23/20 15:51 Urine Nitrite Neg (Negative) 07/23/20 15:51 Urine Bilirubin Neg (Negative) 07/23/20 15:51 Urine Urobilinogen < 2.0 mg/dL (<2.0) 07/23/20 15:51 Ur Leukocyte Esterase Neg (Negative) 07/23/20 15:51 Urine WBC (Auto) < 1.0 /HPF (0.0-6.0) 07/23/20 15:51 Urine RBC (Auto) 4.0 /HPF (0.0-6.0) 07/23/20 15:51 Acetaminophen 5.0 ug/mL (10.0-30.0) L 07/23/20 13:02 Coronavirus (PCR) Positive (Negative) A 07/24/20 10:59 Microbiology: Microbiology 07/23/20 11:50 Peripheral/Venous Blood Culture - Preliminary NO GROWTH AFTER 24 HOURS 07/23/20 11:50 Peripheral/Venous Blood Culture - Preliminary NO GROWTH AFTER 24 HOURS 07/23/20 Unknown Urine,Clean Catch Urine Culture - Preliminary NO GROWTH AFTER 24 HOURS Khan/IV: Voiding Method Toilet IV Catheter Type [Right Wrist] Peripheral IV Active Medications - Current Medications Current Medications: Generic Name Dose Route Start Last Admin Trade Name Freq PRN Reason Stop Dose Admin Acetaminophen 650 mg 07/23/20 23:34 Tylenol PO Q4H PRN Pain MILD(1-3)/Fever >100.5/PHILLIPS Ascorbic Acid 1,000 mg 07/24/20 10:00 07/24/20 22:05 Vitamin C PO 1,000 mg BID AZAR Administration Azithromycin 500 mg 07/25/20 10:00 Zithromax PO QDAY [facility] Cholecalciferol 10,000 unit 07/24/20 10:00 07/24/20 10:53 Vitamin D3 PO 10,000 unit DAILY [facility] Administration Dexamethasone 8 mg 07/24/20 10:00 07/24/20 10:53 Decadron IV 8 mg Q24HR AZAR Administration Enoxaparin Sodium 70 mg 07/25/20 10:00 Enoxaparin 1 mg/kg (70 mg) SUB-Q Q12HR [facility] Protocol Famotidine 20 mg 07/24/20 10:00 07/24/20 22:05 Pepcid PO 20 mg BID AZAR Administration Hydromorphone HCl 0.5 mg 07/23/20 23:34 Dilaudid IV Q3H PRN Pain , Severe (7-10) REMDESIVIR 100 mg/ Sodium 250 mls @ 500 mls/hr 07/25/20 21:00 Chloride IV 07/28/20 21:29 Q24HR@2100 [facility] Ondansetron HCl 4 mg 07/23/20 23:34 Zofran IV Q8H PRN Nausea And Vomiting Oxycodone/Acetaminophen 1 tab 07/23/20 23:34 07/25/20 01:08 Percocet 5/325 PO 1 tab Q6H PRN Administration Pain, Moderate (4-6) Sodium Chloride 10 ml 07/24/20 10:00 07/24/20 22:06 Sodium Chloride Flush Syringe 10 Ml IV 10 ml BID AZAR Administration Sodium Chloride 10 ml 07/23/20 23:34 Sodium Chloride Flush Syringe 10 Ml IV PRN PRN LINE FLUSH Sodium Chloride 50 ml 07/24/20 21:00 07/24/20 21:06 Nacl 0.9% IV 07/28/20 21:01 50 ml Q24HR@2100 [facility] Administration Zinc Sulfate 220 mg 07/24/20 10:00 07/24/20 10:54 Zinc Sulfate PO 220 mg QDAY [facility] Administration
[2020-07-25] MEDS ORDERED: FUROSEMIDE 40 MG/4 ML INJ IV ONE (08:00)
[2020-07-25] MEDS: HYDROmorphone 1 MG/1 ML INJ IV PRN ×2 (08:45→18:30)
[2020-07-25] MEDS: ENOXAPARIN 100 MG/1 ML INJ SUB-Q SCH ×2 (08:59→21:16)
[2020-07-25] MEDS: FAMOTIDINE 20 MG TAB PO SCH ×2 (09:00→21:16)
[2020-07-25] MEDS: CHOLECALCIFEROL (VIT D3) 5,000 UNIT TAB PO SCH (09:00)
[2020-07-25] MEDS: AZITHROMYCIN 250 MG TAB PO SCH (09:01)
[2020-07-25] MEDS: ASCORBIC ACID 500 MG TAB PO SCH ×2 (09:01→21:15)
[2020-07-25] MEDS: dexAMETHasone 4 MG/ML VIAL IV SCH (09:01)
[2020-07-25] MEDS: ZINC SULFATE 220 MG CAP PO SCH (09:02)
--- NOTE | 2020-07-25 12:22 | Consultation ---
History of Present Illness Consult date: 07/25/20 Requesting physician: JR LE Reason for consult: other (COVID-19 Infection; Pneumonia) History of present illness: PULMONARY/CCM CONSULT NOTE (Full dictation # [id number]) Please see dictated notes for full details Past History Past Medical History: No medical history Past Surgical History: No surgical history Social history: full code Family history: hypertension Medications and Allergies Allergies Allergy/AdvReac Type Severity Reaction Status Date / Time No Known Allergies Allergy Verified 07/23/20 15:11 Home Medications Medication Instructions Recorded Confirmed Last Taken Type No Known Home Medications [No 07/25/20 07/25/20 Unknown History Reported Home Medications] Active Meds: Active Medications Acetaminophen (Tylenol) 650 mg PO Q4H PRN PRN Reason: Pain MILD(1-3)/Fever >100.5/PHILLIPS Ascorbic Acid (Vitamin C) 1,000 mg PO BID [facility] Last Admin: 07/25/20 09:01 Dose: 1,000 mg Documented by: Azithromycin (Zithromax) 500 mg PO QDAY [facility] Last Admin: 07/25/20 09:01 Dose: 500 mg Documented by: Cholecalciferol (Vitamin D3) 10,000 unit PO DAILY [facility] Last Admin: 07/25/20 09:00 Dose: 10,000 unit Documented by: Dexamethasone (Decadron) 8 mg IV Q24HR [facility] Last Admin: 07/25/20 09:01 Dose: 8 mg Documented by: Enoxaparin Sodium (Enoxaparin) 70 mg 1 mg/kg (70 mg) SUB-Q Q12HR [facility]; Protocol Last Admin: 07/25/20 08:59 Dose: 70 mg Documented by: Famotidine (Pepcid) 20 mg PO BID [facility] Last Admin: 07/25/20 09:00 Dose: 20 mg Documented by: Hydromorphone HCl (Dilaudid) 0.5 mg IV Q3H PRN PRN Reason: Pain , Severe (7-10) Last Admin: 07/25/20 08:45 Dose: 0.5 mg Documented by: REMDESIVIR 100 mg/ Sodium (Chloride) 250 mls @ 500 mls/hr IV Q24HR@2100 [facility] Stop: 07/28/20 21:29 Ondansetron HCl (Zofran) 4 mg IV Q8H PRN PRN Reason: Nausea And Vomiting Oxycodone/Acetaminophen (Percocet 5/325) 1 tab PO Q6H PRN PRN Reason: Pain, Moderate (4-6) Last Admin: 07/25/20 01:08 Dose: 1 tab Documented by: Sodium Chloride (Sodium Chloride Flush Syringe 10 Ml) 10 ml IV BID [facility] Last Admin: 07/25/20 09:02 Dose: 10 ml Documented by: Sodium Chloride (Sodium Chloride Flush Syringe 10 Ml) 10 ml IV PRN PRN PRN Reason: LINE FLUSH Sodium Chloride (Nacl 0.9%) 50 ml IV Q24HR@2100 [facility] Stop: 07/28/20 21:01 Last Admin: 07/24/20 21:06 Dose: 50 ml Documented by: Zinc Sulfate (Zinc Sulfate) 220 mg PO QDAY [facility] Last Admin: 07/25/20 09:02 Dose: 220 mg Documented by: Physical Examination Vital signs: Vital Signs Pulse Resp Pulse Ox 97 H 23 92 07/23/20 11:06 07/23/20 11:06 07/23/20 11:06 Results - Laboratory Findings CBC and BMP: 07/25/20 05:45 07/25/20 05:45 PT/INR, D-dimer D-Dimer 1204.50 ng/mlDDU (0-234) H 07/25/20 05:45 Abnormal lab findings: Abnormal Labs 07/23/20 07/23/20 07/23/20 11:50 11:50 11:50 WBC Hgb Hct Lymph % (Auto) 5.4 L Lymph # (Auto) 0.4 L Seg Neutrophils % 90.0 H D-Dimer 545.57 H Sodium 136 L Potassium 3.5 L Carbon Dioxide BUN Creatinine Glucose 167 H Hemoglobin A1c Calcium 8.2 L Iron TIBC Transferrin Ferritin AST 47 H Lactate Dehydrogenase 291 H Total Creatine Kinase C-Reactive Protein 29.20 H Albumin 2.9 L Acetaminophen Coronavirus (PCR) 07/23/20 07/23/20 07/23/20 11:50 11:50 11:50 WBC Hgb Hct Lymph % (Auto) Lymph # (Auto) Seg Neutrophils % D-Dimer Sodium Potassium Carbon Dioxide BUN Creatinine Glucose Hemoglobin A1c 6.8 H Calcium Iron TIBC Transferrin Ferritin 1067.0 H AST Lactate Dehydrogenase Total Creatine Kinase 39 L C-Reactive Protein Albumin Acetaminophen Coronavirus (PCR) 12/12/0707/24/20 07/24/20 13:02 05:17 05:17 WBC Hgb 10.7 L Hct 31.8 L Lymph % (Auto) 7.9 L Lymph # (Auto) 0.5 L Seg Neutrophils % 86.2 H D-Dimer Sodium Potassium Carbon Dioxide BUN Creatinine 0.7 L Glucose 161 H Hemoglobin A1c Calcium 8.2 L Iron TIBC Transferrin Ferritin AST 45 H Lactate Dehydrogenase Total Creatine Kinase C-Reactive Protein Albumin 3.0 L Acetaminophen 5.0 L Coronavirus (PCR) 07/24/20 07/24/20 07/25/20 07:35 10:59 05:45 WBC Hgb Hct Lymph % (Auto) Lymph # (Auto) Seg Neutrophils % D-Dimer 1204.50 H Sodium Potassium Carbon Dioxide BUN Creatinine Glucose Hemoglobin A1c Calcium Iron 26 L TIBC 149 L Transferrin 117 L Ferritin AST Lactate Dehydrogenase Total Creatine Kinase C-Reactive Protein Albumin Acetaminophen Coronavirus (PCR) Positive A 07/25/20 07/25/20 07/25/20 05:45 05:45 05:45 WBC 13.5 H Hgb 11.0 L Hct 33.0 L Lymph % (Auto) Lymph # (Auto) Seg Neutrophils % D-Dimer Sodium Potassium 3.5 L Carbon Dioxide 20 L BUN 23 H Creatinine Glucose 187 H Hemoglobin A1c Calcium 8.3 L Iron TIBC Transferrin Ferritin 1912.0 H AST Lactate Dehydrogenase 434 H Total Creatine Kinase C-Reactive Protein 10.60 H Albumin Acetaminophen Coronavirus (PCR)
--- NOTE | 2020-07-25 19:28 | Consultation ---
History of Present Illness - Reason for Consult Consult date: 07/25/20 R/O covid Requesting physician: JANIE MONTOYA - History of Present Illness 75 years old male with history of asthma admitted on secondary to a week history of generalized malaise, cough, shortness of breath. He was diagnosed with COVID-19 as an outpatient. Initial O2 sat dropped to 88% on room air. Patient speaks Palestinian unable to obtain full details. Initial temperature 99.9, HR 97, RR 23, O2 sat dropped to 92%, BP 134/57. Initial WBC 8.3. Platelets 142. D-dimer 1204. AST 45. Ferritin 1912. Procalcitonin 0.4. Blood cultures negative. Urine cultures negative. Chest x-ray bilateral infiltrates. Review of Systems: positive in bold print General: fever, chills, malaise Cutaneous: rash, pruritus Head: headaches or injury Eyes: changes in vision, eye pain, double vision Ears: ear pain, ear discharge, ringing or hearing loss Nose: nose bleeding, stuffiness Mouth & throat: bleeding gums, horseness, no dental problems, or swollen glands Neck: no pain, node enlargement/lumps, tyroid enlargement or tenderness Respiratory: SOB, cough, POWELL, wheezing, sputum, hemoptysis, pleuritic chest pain Cardiovascular: chest pain, leg edema, cyanosis, POWELL, orthopnea Musculoskeletal: edema, deformities, pain Gastrointestinal: nausea, vomiting, hematemesis, diarrhea, constipation, melena, bright red blood in stools, fecal incontinence, jaundice Genitourinary/Reproductive: frequent urination, dysuria, hematuria, incontinence Neurogical: seizures, headaches, weakness, paresthesias, loss of speech or vision; memory loss, vertigo, tremors, numbness Psychiatric: stable mood; excessive anxiety, sadness or moodiness Past History Past Medical History: No medical history Past Surgical History: No surgical history Social history: full code Family history: hypertension Medications and Allergies Allergies Allergy/AdvReac Type Severity Reaction Status Date / Time No Known Allergies Allergy Verified 07/23/20 15:11 Home Medications Medication Instructions Recorded Confirmed Last Taken Type No Known Home Medications [No 07/25/20 07/25/20 Unknown History Reported Home Medications] Active Meds: Active Medications Acetaminophen (Tylenol) 650 mg PO Q4H PRN PRN Reason: Pain MILD(1-3)/Fever >100.5/PHILLIPS Ascorbic Acid (Vitamin C) 1,000 mg PO BID [facility] Last Admin: 07/25/20 09:01 Dose: 1,000 mg Documented by: Azithromycin (Zithromax) 500 mg PO QDAY [facility] Last Admin: 07/25/20 09:01 Dose: 500 mg Documented by: Cholecalciferol (Vitamin D3) 10,000 unit PO DAILY [facility] Last Admin: 07/25/20 09:00 Dose: 10,000 unit Documented by: Dexamethasone (Decadron) 8 mg IV Q24HR [facility] Last Admin: 07/25/20 09:01 Dose: 8 mg Documented by: Enoxaparin Sodium (Enoxaparin) 70 mg 1 mg/kg (70 mg) SUB-Q Q12HR [facility]; Protocol Last Admin: 07/25/20 08:59 Dose: 70 mg Documented by: Famotidine (Pepcid) 20 mg PO BID [facility] Last Admin: 07/25/20 09:00 Dose: 20 mg Documented by: Hydromorphone HCl (Dilaudid) 0.5 mg IV Q3H PRN PRN Reason: Pain , Severe (7-10) Last Admin: 07/25/20 18:30 Dose: 0.5 mg Documented by: REMDESIVIR 100 mg/ Sodium (Chloride) 250 mls @ 500 mls/hr IV Q24HR@2100 [facility] Stop: 07/28/20 21:29 Ondansetron HCl (Zofran) 4 mg IV Q8H PRN PRN Reason: Nausea And Vomiting Oxycodone/Acetaminophen (Percocet 5/325) 1 tab PO Q6H PRN PRN Reason: Pain, Moderate (4-6) Last Admin: 07/25/20 01:08 Dose: 1 tab Documented by: Sodium Chloride (Sodium Chloride Flush Syringe 10 Ml) 10 ml IV BID [facility] Last Admin: 07/25/20 09:02 Dose: 10 ml Documented by: Sodium Chloride (Sodium Chloride Flush Syringe 10 Ml) 10 ml IV PRN PRN PRN Reason: LINE FLUSH Sodium Chloride (Nacl 0.9%) 50 ml IV Q24HR@2100 [facility] Stop: 07/28/20 21:01 Last Admin: 07/24/20 21:06 Dose: 50 ml Documented by: Zinc Sulfate (Zinc Sulfate) 220 mg PO QDAY [facility] Last Admin: 07/25/20 09:02 Dose: 220 mg Documented by: Physical Examination - Physical Exam Narrative exam: General appearance: Alert in NAD pleasant Eyes: anicteric sclerae, moist conjunctivae; no lid-lag; PERRLA HENT: Normocephalic, Atraumatic; normal external ears, nares open, oropharynx clear with moist mucous membranes and no oral thrush; normal hard and soft palate. Neck: supple, tracheal midline, no JVD Lungs: Bilateral wheezing CV: RRR no murmur Abdomen: Soft, non-tender; no masses or hepatosplenomegaly Extremities: no edema, no cyanosis Skin: No rash. Psych: no agitated Neuro: alert and oriented x 3. Moving all extermities - Constitutional Vitals: Vital Signs Temp Pulse Resp BP Pulse Ox 98.3 F 86 19 162/79 92 07/25/20 16:41 07/25/20 16:41 07/25/20 16:41 07/25/20 16:41 07/25/20 16:41 Temperature -Last 24 Hours Temperature 98.3 F Temperature 97.6 F Temperature 98.3 F Temperature 98.4 F Results - Labs CBC & Chem 7: 07/25/20 05:45 07/25/20 05:45 Labs: Abnormal lab results 07/25/20 07/25/20 07/25/20 Range/Units 05:45 05:45 05:45 WBC (4.5-11.0) K/mm3 Hgb (11.8-15.2) gm/dl Hct (35.5-45.6) % D-Dimer 1204.50 H (0-234) ng/mlDDU Potassium 3.5 L (3.6-5.0) mmol/L Carbon Dioxide 20 L (22-30) mmol/L BUN 23 H (9-20) mg/dL Glucose 187 H (75-100) mg/dL Calcium 8.3 L (8.4-10.2) mg/dL Ferritin 1912.0 H (30.0-300.0) ng/mL Lactate Dehydrogenase 434 H (91-180) units/L C-Reactive Protein 10.60 H (0.00-1.30) mg/dL 07/25/20 Range/Units 05:45 WBC 13.5 H (4.5-11.0) K/mm3 Hgb 11.0 L (11.8-15.2) gm/dl Hct 33.0 L (35.5-45.6) % D-Dimer (0-234) ng/mlDDU Potassium (3.6-5.0) mmol/L Carbon Dioxide (22-30) mmol/L BUN (9-20) mg/dL Glucose (75-100) mg/dL Calcium (8.4-10.2) mg/dL Ferritin (30.0-300.0) ng/mL Lactate Dehydrogenase (91-180) units/L C-Reactive Protein (0.00-1.30) mg/dL Assessment and Plan Cultures: Blood culture negative Urine culture negative SARS CoV2 PCR positive Assessment: 75 years old male with history of asthma admitted on 07/23/2020 secondary to a week history of generalized malaise, cough, shortness of breath. He was diagnosed with COVID-19 as an outpatient: #Severe COVID pneumonia: Chest x-ray showing bilateral infiltrates. Inflammatory markers elevated. D-dimer 12.4. Procalcitonin 0.4. #Acute hypoxemic respiratory failure: Initial O2 sat dropped to 92%. Currently on 4 L nasal cannula. #Elevated LFTs: from COVID #Asthma: Likely with exacerbation Recommendations: Continue Dexamethasone 6 mg IV/PO daily for 10 days Continue Remdesivir x 5 days Monitor inflammatory markers - ferritin, Ddimer, CRP, LDH Continue ceftriaxone for 5 days and azithromycin for 3 days, procalcitonin >0.25 ng/mL Monitor liver function test on Remdesivir Continue anticoagulation per System Protocol Prone positioning as possible All laboratory, cultures and imaging were reviewed. At Risk for deterioration. Will follow Laury Moralez MD Infectious Diseases [employer]ishing [employer] Operator [facility] M [phone] O [phone]
[2020-07-25] MEDS: SODIUM CHLORIDE 0.9% 50 ML IVPB IV SCH (21:15)
[2020-07-25] MEDS: REMDESIVIR 100 MG in SODIUM CHLORIDE 0.9% 250ML 250 ML IV SCH (21:45)
--- NOTE | 2020-07-26 02:39 | Consultation ---
PULMONARY CONSULTATION NOTE CONSULTING PHYSICIAN: Dr. Phelps. REASON FOR CONSULTATION: Acute respiratory failure, COVID-19 infection. CHIEF COMPLAINT AND HISTORY OF PRESENT ILLNESS: As follows: The patient is a 75-year-old [place] male with past medical history according to him significant for asthma when he was younger, but also history of heart disease, who came into the Emergency Room. He was apparently diagnosed with COVID-19 about 5 days prior to presentation after he was having generalized malaise and weakness. He was brought in on the day of presentation secondary to hypoxemia in the field with a saturation of 88%. He denied any chest pain. He denied any hemoptysis. He denied any cough. He denied any vomiting or overt aspiration. He was evaluated in the Emergency Room and admitted to the medical floor on supplemental oxygen and we are asked to assist with management. When I stopped by to see him, he was resting in bed peacefully, complaining that he really had not gotten any sleep in the past few days. Again, he denied cough, he denied chest pains, he denied any hemoptysis. He admitted to a nonproductive cough. He denied any sick contacts. He denied any new onset leg pain or swelling either unilaterally or bilaterally or any suggestion of deep venous thrombosis. With regards to tobacco use/abuse history, he had denied tobacco abuse. This really is as much of the history of presentation as I have. PAST MEDICAL HISTORY: Again, significant for a remote history of childhood asthma, history of hypertension and history of some sort of cardiomyopathy. PAST SURGICAL HISTORY: Unknown. MEDICATIONS: He was on at the time I stopped by to see him were reviewed, pertinent medications include the following: Tylenol 650 mg p.o. q. 4 hours p.r.n. mild pain or fevers, vitamin C 1000 mg p.o. b.i.d., Zithromax 500 mg p.o. daily, vitamin D3 10,000 units p.o. daily, dexamethasone 8 mg IV daily, Lovenox 70 mg subcutaneous q.12 hours ____ mg/kg q.12 hours, Pepcid 20 mg p.o. b.i.d., Dilaudid 0.5 mg IV q. 3 hours p.r.n. severe pain, Zofran 4 mg IV q. 8 hours p.r.n. nausea and vomiting, remdesivir 100 mg IV daily and zinc sulfate 220 mg p.o. daily. He was on Rocephin prior that has been discontinued. He did receive a dose yesterday. ALLERGIES: No known drug allergies. DIET: Well-built gentleman. Denies acute weight loss or gain in the preceding few weeks to months. FAMILY AND SOCIAL HISTORY: Apparently lives in the community. Denied alcohol, tobacco, or illicit drug use or abuse. Family history is otherwise unknown. REVIEW OF SYSTEMS: Difficult to obtain secondary to a little bit of a language barrier; however, I did use a lean coach and no gross hematochezia or melena, no gross hematuria, no seizures. Review of systems otherwise unobtainable or as in body of history above. PHYSICAL EXAMINATION: VITAL SIGNS: On examination at presentation in the Emergency Room, he had a low-grade fever of 99.9 degrees Fahrenheit, pulse of 97, respiratory rate of 23, blood pressure 134/57, O2 sats were 92%, inspired oxygen concentration at that time was not recorded. When I stopped by to see him, O2 sats were 92% that was on 4 liters nasal cannula. GENERAL: He is an elderly looking male, talking to me in full sentences, but with mildly increased respiratory effort at rest. HEAD, EYES, EARS, NOSE AND THROAT: Normocephalic, atraumatic. Anicteric. No conjunctival erythema. He had a facemask on. I was unable to evaluate oropharynx. No gross jugular venous distention, no thyromegaly. NECK: Grossly, there were no palpable lymph nodes in the supraclavicular or submandibular lymph node chains. LUNGS: Auscultation of both lung peck revealed bilateral diminished breath sounds, faint expiratory wheezes anteriorly and slightly prolonged expiratory phase. ABDOMEN: Soft, full, bowel sounds are positive, nontender, no palpable hepatosplenomegaly. HEART: Heart sounds 1 and 2 are heard, regular rate and rhythm at the time of my evaluation without overt rubs or murmurs. EXTREMITIES: Without overt digital clubbing, no cyanosis, no pedal edema. NEUROLOGIC: Pupils are equal, round, about 4 mm, reactive to light. Extraocular muscle movements were intact. He had full range of motion. He moves all 4 extremities spontaneously. SKIN: Normal turgor in the areas examined without overt cellulitis or rash. Please see the wound care nurse's notes for full description of his skin. PSYCHIATRIC: Mood was normal. Affect was anxious. LABORATORY DATA: From my review are as follows: Admission white cell count was 8300 with hemoglobin of 10.8, hematocrit of 32.3 and platelet count of 142. No manual differential. D-dimer was elevated at 545. Serum sodium 136, potassium 3.5, chloride 102, bicarbonate 24, BUN 13, creatinine 0.9, glucose was 167. Hemoglobin A1c is slightly elevated at 6.8. Magnesium within normal limits. AST slightly elevated at 47. Ferritin was 1067. LDH 291. CRP was 29.2. Procalcitonin was 0.49. Troponin was within normal limits. Urinalysis, trace ketones, otherwise unremarkable. Tylenol level was low at 5.0. Coronavirus PCR has returned positive. White cell count is up to 13.5 today. D-dimer is up to 1204. Potassium is low at 3.5. Ferritin also increasing up to 1912. Two sets of blood cultures and urine cultures, no growth to date. A chest x-ray was done, it revealed a right upper lobe predominant infiltrate, but also increased interstitial markings with alveolar type infiltrate and gross cardiomegaly, median sternotomy wires from previous intrathoracic surgery. No gross pneumothorax, some deviation of the trachea to the right. No gross bony fractures that I can see. ASSESSMENT: 1. Acute hypoxemic respiratory failure. 2. Possible element of acute asthma exacerbation. 3. Coronavirus 19 infection. 4. Pneumonia, right upper lobe predominant. 5. Pyrexia, low-grade fevers. 6. Elevated serum inflammatory markers to include D-dimers, ferritin level and CRP level. 7. Mild hypokalemia. 8. Elevated serum transaminases. PLAN: I do agree with current treatment modalities. I do feel that this certainly is an element of perhaps reactive airway disease/asthma flareup. We will continue systemic steroids. He is using MDIs. I believe he is on Combivent and he has one by the bedside. We will continue that. I have asked him to continue to use that q.i.d. and p.r.n. as tolerated. He is to report increased use. I will hold on long-acting bronchodilators at this time because of nebulization and risk of aerosolization. With a low procalcitonin level, I think it is appropriate to discontinue the Zithromax. It is also important and I think that we will watch out for possible volume overload in this gentleman with cardiomyopathy. It is unclear what his ejection fraction is. He may need gentle diuresis p.r.n. I will defer to Infectious Disease for the ancillary interventions. We agreed with remdesivir therapy and completing for 5 days of therapy. At this time, I do agree with full dose anticoagulation, especially with the inflammatory markers heading upwards and without obvious VTE rule out. I do not want to send him for a CT angio or Dopplers at this time. We will empirically treat him for the COVID-19 hypercoagulable state and possible venous thromboembolic event. I agree with zinc and vitamin C supplementation. He is appropriately on GI prophylaxis also. Flu and pneumonia vaccination will be addressed per protocol. Thank you very much for the consult, Dr. Phelps. We will follow along and make further recommendations as picture progresses/becomes clearer. Oxygen will be weaned to keep sats greater than or equal to about 92%. Noninvasive ventilation, bilevel positive airway pressure ventilation therapy will be introduced for increased work of breathing or significantly worsened hypoxemia. JOB# [id number] MASSIEL/ARI
[2020-07-26 06:37] LABS: Hematocrit 32.7 % (35.5-45.6); Hemoglobin 10.8 gm/dl (11.8-15.2); Mean Corpuscular HGB Conc 33 % (32-34); Mean Corpuscular Volume 87 fl (84-94); Platelet Count 240 K/mm3 (140-440); Red Blood Count 3.78 M/mm3 (3.65-5.03); Red Cell Distribution Width 14.5 % (13.2-15.2)
[2020-07-26 07:10] LABS: Alanine Aminotransferase 169 units/L (7-56); Albumin 2.8 g/dL (3.9-5); BUN/Creatinine Ratio 38; Blood Urea Nitrogen 30 mg/dL (9-20); Calcium 8.4 mg/dL (8.4-10.2); Hemolysis Index 2
[2020-07-26] MEDS: FAMOTIDINE 20 MG TAB PO SCH ×2 (10:01→22:28)
[2020-07-26] MEDS: CHOLECALCIFEROL (VIT D3) 5,000 UNIT TAB PO SCH (10:01)
[2020-07-26] MEDS: ASCORBIC ACID 500 MG TAB PO SCH ×2 (10:02→22:27)
[2020-07-26] MEDS: dexAMETHasone 4 MG/ML VIAL IV SCH (10:02)
[2020-07-26] MEDS: ENOXAPARIN 100 MG/1 ML INJ SUB-Q SCH (10:02)
[2020-07-26] MEDS: ZINC SULFATE 220 MG CAP PO SCH (10:02)
[2020-07-26] MEDS: AZITHROMYCIN 250 MG TAB PO SCH (10:03)
[2020-07-26] MEDS ORDERED: ZOLPIDEM 5 MG TAB PO PRN (13:46)
[2020-07-26] MEDS ORDERED: ALBUTEROL 8.5 GM MDI INHALATION IH PRN (13:50)
--- NOTE | 2020-07-26 14:02 | Progress Note ---
Assessment and Plan Patient alert, awake. Sitting up by the side of the bed and eating his supper. Patient is on 2 litres O2. O2 saturation 93%. Patient afebrile and has mild leukocytosis. Patient positive for pereira virus. Chest xray 07/23/20 reported Subtle bilateral airspace opacities as described. Viral infection could be considered. Patients inflammatory markers Serum ferritin 1912 LDH 434 C reactive protein 10.0 D dimer 1204.5 Patient is on dexamethsosone, Remdesivir, Ceftriaxone,Zithromax S/C Lovenox at therapeutic dose. - Patient Problems (1) Acute respiratory failure with hypoxia Current Visit: Yes Status: Acute Plan to address problem: O2 2 litres via nasal canula. Albuterol inhaler 2 puffs po qid prn for shortness of breath. Continue ceftriaxone. Continue dexamethasone. Continue S/C Lovenox. ABGs on 2 litres O2. (2) Bilateral pneumonia Current Visit: Yes Status: Acute Plan to address problem: Patient is on ceftriaxone and zithromax. (3) Anemia Current Visit: Yes Status: Chronic Qualifiers: Anemia type: unspecified type Qualified Code(s): D64.9 - Anemia, unspecified Plan to address problem: Management as per primary care. (4) COVID-19 virus detected Current Visit: Yes Status: Acute Plan to address problem: Management as per infectious diseases. Subjective Date of service: 07/26/20 Interval history: Patient alert, awake. Sitting up by the side of the bed and eating his supper. Patient is on 2 litres O2. O2 saturation 93%. Patient afebrile and has mild leukocytosis. Patient positive for pereira virus. Chest xray 07/23/20 reported Subtle bilateral airspace opacities as described. Viral infection could be considered. Patients inflammatory markers Serum ferritin 1912 LDH 434 C reactive protein 10.0 D dimer 1204.5 Patient is on dexamethsosone, Remdesivir, Ceftriaxone, Zithromax, S/C Lovenox at therapeutic dose. Objective Vital Signs - 12hr 07/26/20 07/26/20 04:42 10:57 Temperature 98.4 F 98.1 F Pulse Rate 76 85 Respiratory 16 16 Rate Blood Pressure 145/77 136/72 O2 Sat by Pulse 89 92 Oximetry Constitutional: no acute distress, alert Eyes: non-icteric Neck: supple, no lymphadenopathy Effort: mildly labored Ascultation: Bilateral: rales Cardiovascular: regular rate and rhythm Gastrointestinal: normoactive bowel sounds, soft, non-tender Integumentary: normal Extremities: no cyanosis, no edema Neurologic: normal mental status, non-focal exam, pupils equal and round Psychiatric: mood appropriate CBC and BMP: 07/26/20 05:22 07/26/20 05:22 ABG, PT/INR, D-dimer: PT/INR, D-dimer D-Dimer 1204.50 ng/mlDDU (0-234) H 07/25/20 05:45 Abnormal lab findings: Abnormal Labs 07/23/20 07/23/20 07/23/20 11:50 11:50 11:50 WBC Hgb Hct Lymph % (Auto) 5.4 L Lymph # (Auto) 0.4 L Seg Neutrophils % 90.0 H D-Dimer 545.57 H Sodium 136 L Potassium 3.5 L Carbon Dioxide BUN Creatinine Glucose 167 H Hemoglobin A1c Calcium 8.2 L Iron TIBC Transferrin Ferritin AST 47 H ALT Lactate Dehydrogenase 291 H Total Creatine Kinase C-Reactive Protein 29.20 H Albumin 2.9 L Acetaminophen Coronavirus (PCR) 07/23/20 07/23/20 07/23/20 11:50 11:50 11:50 WBC Hgb Hct Lymph % (Auto) Lymph # (Auto) Seg Neutrophils % D-Dimer Sodium Potassium Carbon Dioxide BUN Creatinine Glucose Hemoglobin A1c 6.8 H Calcium Iron TIBC Transferrin Ferritin 1067.0 H AST ALT Lactate Dehydrogenase Total Creatine Kinase 39 L C-Reactive Protein Albumin Acetaminophen Coronavirus (PCR) 07/23/20 07/24/20 07/24/20 13:02 05:17 05:17 WBC Hgb 10.7 L Hct 31.8 L Lymph % (Auto) 7.9 L Lymph # (Auto) 0.5 L Seg Neutrophils % 86.2 H D-Dimer Sodium Potassium Carbon Dioxide BUN Creatinine 0.7 L Glucose 161 H Hemoglobin A1c Calcium 8.2 L Iron TIBC Transferrin Ferritin AST 45 H ALT Lactate Dehydrogenase Total Creatine Kinase C-Reactive Protein Albumin 3.0 L Acetaminophen 5.0 L Coronavirus (PCR) 07/24/20 07/24/20 07/25/20 07:35 10:59 05:45 WBC Hgb Hct Lymph % (Auto) Lymph # (Auto) Seg Neutrophils % D-Dimer 1204.50 H Sodium Potassium Carbon Dioxide BUN Creatinine Glucose Hemoglobin A1c Calcium Iron 26 L TIBC 149 L Transferrin 117 L Ferritin AST ALT Lactate Dehydrogenase Total Creatine Kinase C-Reactive Protein Albumin Acetaminophen Coronavirus (PCR) Positive A 07/25/20 07/25/20 07/25/20 05:45 05:45 05:45 WBC 13.5 H Hgb 11.0 L Hct 33.0 L Lymph % (Auto) Lymph # (Auto) Seg Neutrophils % D-Dimer Sodium Potassium 3.5 L Carbon Dioxide 20 L BUN 23 H Creatinine Glucose 187 H Hemoglobin A1c Calcium 8.3 L Iron TIBC Transferrin Ferritin 1912.0 H AST ALT Lactate Dehydrogenase 434 H Total Creatine Kinase C-Reactive Protein 10.60 H Albumin Acetaminophen Coronavirus (PCR) 07/26/20 07/26/20 05:22 05:22 WBC 11.9 H Hgb 10.8 L Hct 32.7 L Lymph % (Auto) Lymph # (Auto) Seg Neutrophils % D-Dimer Sodium Potassium Carbon Dioxide BUN 30 H Creatinine Glucose 121 H Hemoglobin A1c Calcium Iron TIBC Transferrin Ferritin AST 110 H ALT 169 H Lactate Dehydrogenase Total Creatine Kinase C-Reactive Protein Albumin 2.8 L Acetaminophen Coronavirus (PCR) Chest x-ray: report reviewed, image reviewed Additional Studies: CHEST 1 VIEW 07/23/20 INDICATION: SOB COVID. COMPARISON: 06/10/2019 FINDINGS: Support devices: None. Heart: Within normal limits. Previous CABG changes are noted. Lungs/Pleura: Subtle airspace opacities are identified in the right upper lobe and left lower lobe which could be infectious in origin. No consolidation, pleural effusion or pneumothorax. Additional findings: None. IMPRESSION: Subtle bilateral airspace opacities as described. Viral infection could be considered.
--- NOTE | 2020-07-26 14:04 | Progress Note ---
Subjective Date of service: 07/26/20 Interval history: 75-year-old [place] male diagnosed significant past medical history comes in for increasing shortness of breath and generalized weakness. 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 Patient has generalized malaise and weakness. Patient was brought in by EMS because of shortness of breath. Patient was hypoxic with a saturation of 88% in the field. With oxygenation supplements oxygen O2 sats improved to 93--94. Language barrier present. Could not get a proper history from the patient. Tried to use the television audio engineer service but was kept on hold for a long time. No fever or chills at this point. 07/24: This morning patient sitting up reported chills and shaking making him come to the hospital, continue current management for COVID-19. Will give Lasix 20 mg IV x1. Continue to monitor inflammatory markers while awaiting ID input. Will initiate remdesivir due to hypoxia. 07/25: Noted on 6 liters, will give additional lasix today, change to full anticoagulation, will obtain CT chest and Doppler lower ext if no improvement in 24 to 48 hrs. Will consult pulmonary. If unable to wean oxygen down today will change to vapotherm. Spoke and updated patients Niece 07/26 patient is alert and oriented. Feels short of breath with mild effort and also complains of severe insomnia and states that he has not slept in 2 days Denies cough. States he has asthma. Denies fever or chills. He does complain of generalized weakness. ID consult note and lab results reviewed Assessment and plan Severe Covid pneumonitis ID note reviewed Chest x-ray reviewed Continue remdesivir and Decadron Continue Zithromax and ceftriaxone as procalcitonin level is elevated Monitor inflammatory markers Acute hypoxic respiratory failure Secondary to #1 Continue oxygen via nasal cannula at 4 L Elevated LFTs Secondary to Covid 19 infection History of asthma Not in exacerbation Start on albuterol inhaler as needed Normocytic anemia No overt bleed Monitor H&H Objective - Constitutional Vitals: Vital Signs - 12hr 07/26/20 07/26/20 04:42 10:57 Temperature 98.4 F 98.1 F Pulse Rate 76 85 Respiratory 16 16 Rate Blood Pressure 145/77 136/72 O2 Sat by Pulse 89 92 Oximetry General appearance: Present: no acute distress - EENT Eyes: PERRL, EOM intact ENT: hearing intact, clear oral mucosa - Neck Neck: supple, normal ROM, no masses or JVD - Respiratory Respiratory effort: normal Respiratory: bilateral: CTA, negative: rhonchi, wheezing - Cardiovascular Rhythm: regular Heart Sounds: Present: S1 & S2 Extremities: No edema - Gastrointestinal General gastrointestinal: Present: soft, non-tender Rectal Exam: deferred - Genitourinary Male genitourinary: deferred - Integumentary Integumentary: clear - Musculoskeletal Musculoskeletal: strength equal bilaterally - Neurologic Neurologic: moves all extremities - Psychiatric Psychiatric: appropriate mood/affect - Labs CBC & Chem 7: 07/26/20 05:22 07/26/20 05:22 Labs: Abnormal lab results 07/26/20 07/26/20 Range/Units 05:22 05:22 WBC 11.9 H (4.5-11.0) K/mm3 Hgb 10.8 L (11.8-15.2) gm/dl Hct 32.7 L (35.5-45.6) % BUN 30 H (9-20) mg/dL Glucose 121 H (75-100) mg/dL AST 110 H (5-40) units/L ALT 169 H (7-56) units/L Albumin 2.8 L (3.9-5) g/dL HEART Score - HEART Score Troponin: Troponin T < 0.010 ng/mL (0.00-0.029) 07/23/20 11:50
[2020-07-26] MEDS: cefTRIAXone/NS 2 GM/100 ML 2 GM/100 ML BAG IV SCH (14:25)
--- NOTE | 2020-07-26 15:15 | Progress Note ---
Assessment and Plan Cultures: Blood culture negative Urine culture negative SARS CoV2 PCR positive Assessment: 75 years old male with history of asthma admitted on 07/23/2020 secondary to a week history of generalized malaise, cough, shortness of breath. He was diagnosed with COVID-19 as an outpatient: #Severe COVID pneumonia: Chest x-ray showing bilateral infiltrates. Inflammatory markers elevated, worsening. D-dimer 12.4. Procalcitonin 0.4. #Acute hypoxemic respiratory failure: Initial O2 sat dropped to 92%. improving, now on 2 L nasal cannula #Elevated LFTs: from COVID #Asthma: Likely with exacerbation Recommendations: Continue Dexamethasone 6 mg IV/PO daily for 10 days Continue Remdesivir x 5 days Monitor inflammatory markers - ferritin, Ddimer, CRP, LDH Continue ceftriaxone for 5 days and azithromycin for 3 days, procalcitonin >0.25 ng/mL Monitor liver function test on Remdesivir Continue anticoagulation per System Protocol Prone positioning as possible Check SARS-CoV-2 IgG All laboratory, cultures and imaging were reviewed. At Risk for deterioration. Will follow Laury Moralez MD Infectious Diseases [employer] [facility] ([facility] M [phone] O [phone] Subjective Date of service: 07/26/20 Principal diagnosis: COVID Interval history: Patient remains on nasal cannula O2, 2 L, no fever Objective - Exam Narrative Exam: Physical Exam: reviewed ED and hospitalist notes, limited due to conservation of PPE and decrease risk of transmission. General appearance: limited due to conservation of PPE Eyes: limited due to conservation of PPE HENT: Atraumatic; limited due to conservation of PPE Lungs: limited due to conservation of PPE CV: limited due to conservation of PPE Abdomen: limited due to conservation of PPE Extremities: limited due to conservation of PPE Skin: limited due to conservation of PPE Psych: limited due to conservation of PPE Neuro: limited due to conservation of PPE - Constitutional Vitals: Vital Signs Temp Pulse Resp BP Pulse Ox 98.1 F 85 16 136/72 93 07/26/20 10:57 07/26/20 10:57 07/26/20 10:57 07/26/20 10:57 07/26/20 14:10 Temperature -Last 24 Hours Temperature 98.1 F Temperature 98.4 F Temperature 98.4 F Temperature 98.3 F - Labs CBC & Chem 7: 07/26/20 05:22 07/26/20 05:22 Labs: Abnormal lab results 07/26/20 07/26/20 Range/Units 05:22 05:22 WBC 11.9 H (4.5-11.0) K/mm3 Hgb 10.8 L (11.8-15.2) gm/dl Hct 32.7 L (35.5-45.6) % BUN 30 H (9-20) mg/dL Glucose 121 H (75-100) mg/dL AST 110 H (5-40) units/L ALT 169 H (7-56) units/L Albumin 2.8 L (3.9-5) g/dL
[2020-07-26] MEDS: SODIUM CHLORIDE 0.9% 50 ML IVPB IV SCH (22:25)
[2020-07-26] MEDS: REMDESIVIR 100 MG in SODIUM CHLORIDE 0.9% 250ML 250 ML IV SCH (22:26)
[2020-07-26] MEDS: ENOXAPARIN 80 MG/0.8 ML INJ SUB-Q SCH (22:28)
[2020-07-27 07:10] LABS: C-Reactive Protein 3.6 mg/dL (0.00-1.30)
--- NOTE | 2020-07-27 09:26 | Progress Note ---
Assessment and Plan Cultures: Blood culture negative Urine culture negative SARS CoV2 PCR positive Assessment: 75 years old male with history of asthma admitted on 07/23/2020 secondary to a week history of generalized malaise, cough, shortness of breath. He was diagnosed with COVID-19 as an outpatient: #Severe COVID pneumonia: Chest x-ray showing bilateral infiltrates. Inflammatory markers elevated, improving. Procalcitonin 0.4. #Acute hypoxemic respiratory failure: Initial O2 sat dropped to 92%. improving, now on 2 L nasal cannula #Elevated LFTs: from COVID #Asthma: Likely with exacerbation Recommendations: Continue Dexamethasone 6 mg IV/PO daily for 10 days Continue Remdesivir x 5 days -day 3 of 5 Monitor inflammatory markers - ferritin, Ddimer, CRP, LDH Continue ceftriaxone for 5 days, completed azithromycin, procalcitonin >0.25 n g/mL Monitor liver function test on Remdesivir Continue anticoagulation per System Protocol Prone positioning as possible SARS-CoV-2 IgG positive patient is not a candidate for Covid convalescent plasma Obtain exercise pulse oximeter tomorrow All laboratory, cultures and imaging were reviewed. At Risk for deterioration. Will follow Laury Moralez MD Infectious Diseases Stone [employer] [facility] ([facility]) M [phone] O [phone] Subjective Date of service: 07/27/20 Principal diagnosis: COVID Interval history: Patient remains on 2 L nasal cannula, no fever Objective - Exam Narrative Exam: Physical Exam: reviewed ED and hospitalist notes, limited due to conservation of PPE and decrease risk of transmission. General appearance: limited due to conservation of PPE Eyes: limited due to conservation of PPE HENT: Atraumatic; limited due to conservation of PPE Lungs: limited due to conservation of PPE CV: limited due to conservation of PPE Abdomen: limited due to conservation of PPE Extremities: limited due to conservation of PPE Skin: limited due to conservation of PPE Psych: limited due to conservation of PPE Neuro: limited due to conservation of PPE - Constitutional Vitals: Vital Signs Temp Pulse Resp BP Pulse Ox 98.6 F 83 20 153/76 96 07/26/20 15:49 07/26/20 15:49 07/26/20 15:49 07/26/20 15:49 07/26/20 22:15 Temperature -Last 24 Hours Temperature 98.6 F Temperature 98.1 F - Labs CBC & Chem 7: 07/26/20 05:22 07/26/20 05:22 Labs: Abnormal lab results 07/26/20 07/27/20 07/27/20 Range/Units 15:20 05:55 05:55 D-Dimer 407.67 H (0-234) ng/mlDDU Ferritin 1064.0 H (30.0-300.0) ng/mL Lactate Dehydrogenase (91-180) units/L C-Reactive Protein (0.00-1.30) mg/dL SARS-CoV-2 IgG Ab Reactive A (NonReactive) 07/27/20 Range/Units 05:55 D-Dimer (0-234) ng/mlDDU Ferritin (30.0-300.0) ng/mL Lactate Dehydrogenase 287 H (91-180) units/L C-Reactive Protein 3.60 H (0.00-1.30) mg/dL SARS-CoV-2 IgG Ab (NonReactive)
[2020-07-27] MEDS: ENOXAPARIN 80 MG/0.8 ML INJ SUB-Q SCH ×2 (10:19→21:48)
[2020-07-27] MEDS: cefTRIAXone/NS 2 GM/100 ML 2 GM/100 ML BAG IV SCH (10:19)
[2020-07-27] MEDS: ZINC SULFATE 220 MG CAP PO SCH (10:20)
[2020-07-27] MEDS: DEXAMETHASONE 4 MG TAB PO SCH (10:20)
[2020-07-27] MEDS: CHOLECALCIFEROL (VIT D3) 5,000 UNIT TAB PO SCH (10:21)
[2020-07-27] MEDS: FAMOTIDINE 20 MG TAB PO SCH ×2 (10:21→21:48)
[2020-07-27] MEDS: ASCORBIC ACID 500 MG TAB PO SCH ×2 (10:21→21:49)
--- NOTE | 2020-07-27 10:39 | Progress Note ---
Assessment and Plan Assessment and plan: 75-year-old Malaysian male diagnosed significant past medical history comes in for increasing shortness of breath and generalized weakness. 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 Patient has generalized malaise and weakness. Patient was brought in by EMS because of shortness of breath. Patient was hypoxic with a saturation of 88% in the field. With oxygenation supplements oxygen O2 sats improved to 93--94. Language barrier present. Could not get a proper history from the patient. Tried to use the maintenance person service but was kept on hold for a long time. No fever or chills at this point. 07/24: This morning patient sitting up reported chills and shaking making him come to the hospital, continue current management for COVID-19. Will give Lasix 20 mg IV x1. Continue to monitor inflammatory markers while awaiting ID input. Will initiate remdesivir due to hypoxia. 07/25: Noted on 6 liters, will give additional lasix today, change to full anticoagulation, will obtain CT chest and Doppler lower ext if no improvement in 24 to 48 hrs. Will consult pulmonary. If unable to wean oxygen down today will change to vapotherm. Spoke and updated patients Niece 07/26 patient is alert and oriented. Feels short of breath with mild effort and also complains of severe insomnia and states that he has not slept in 2 days Denies cough. States he has asthma. Denies fever or chills. He does complain of generalized weakness. ID consult note and lab results reviewed 07/27: Continue current management. Will give patient trazodone for sleep. He is less anxious today. We will also give a dose of Lasix. Of asked the nursing staff to perform home oxygen evaluation as he is getting close to completion of remdesivir. Continue to monitor inflammatory markers (1) Acute respiratory failure with hypoxia Current Visit: Yes Status: Acute Plan to address problem: Patient on oxygen supplements. initailly requiring minimal oxygen supplements 3 to 5 L Patient admitted in isolation Possible coronavirus infection Coronavirus PCR requested (2) Bilateral pneumonia Current Visit: Yes Status: Acute Plan to address problem: For the time being treated as community-acquired pneumonia Patient initiated on IV ceftriaxone and IV Zithromax. (3) severe Covid pneumonitis Current Visit: Yes Status: Acute Plan to address problem: Check coronavirus PCR Patient is apparently coronavirus PCR +4 days ago on Sunday which is 07/19/2020 (4) Hyponatremia Current Visit: Yes Status: Acute Plan to address problem: Very mild Trend the sodium levels No IV fluids were given because of the possibility of coronavirus (5) Anemia Current Visit: Yes Status: Chronic Qualifiers: Anemia type: unspecified type Qualified Code(s): D64.9 - Anemia, unspecified Plan to address problem: Anemia work-up (6) DVT prophylaxis Current Visit: Yes Status: Acute Plan to address problem: Patient initiated on Lovenox and GI prophylaxis History Interval history: Patient seen and examined resting comfortably no new complaints. Sitting up to day reports some improvement in symptoms. Hospitalist Physical - Physical exam Narrative exam: General appearance: Present: mild distress, well-nourished - EENT Eyes: Present: PERRL ENT: hearing intact, clear oral mucosa - Neck Neck: Present: supple, normal ROM - Respiratory Respiratory effort: normal Respiratory: bilateral: CTA, rhonchi (Scattered), wheezing - Cardiovascular Heart rate: 78 Rhythm: regular Heart Sounds: Present: S1 & S2. Absent: rub, click - Extremities Extremities: pulses symmetrical, No edema Peripheral Pulses: within normal limits - Abdominal General gastrointestinal: Present: soft, non-tender, non-distended, normal bowel sounds Male genitourinary: Present: normal - Integumentary Integumentary: Present: clear, warm, dry - Musculoskeletal Musculoskeletal: gait normal, strength equal bilaterally - Psychiatric Psychiatric: appropriate mood/affect, intact judgment & insight - Neurologic Neurologic: CNII-XII intact, moves all extremities - Constitutional Vitals: Temp Pulse Resp BP Pulse Ox 98.6 F 83 20 153/76 96 07/26/20 15:49 07/26/20 15:49 07/26/20 15:49 07/26/20 15:49 07/26/20 22:15 General appearance: Present: no acute distress HEART Score - HEART Score Troponin: Troponin T < 0.010 ng/mL (0.00-0.029) 07/23/20 11:50 Results - Labs CBC & Chem 7: 07/28/20 06:00 07/28/20 06:00 Labs: Laboratory Last Values WBC 11.9 K/mm3 (4.5-11.0) H 07/26/20 05:22 RBC 3.78 M/mm3 (3.65-5.03) 07/26/20 05:22 Hgb 10.8 gm/dl (11.8-15.2) L 07/26/20 05:22 Hct 32.7 % (35.5-45.6) L 07/26/20 05:22 MCV 87 fl (84-94) 07/26/20 05:22 MCH 29 pg (28-32) 07/26/20 05:22 MCHC 33 % (32-34) 07/26/20 05:22 RDW 14.5 % (13.2-15.2) 07/26/20 05:22 Plt Count 240 K/mm3 (140-440) 07/26/20 05:22 Lymph % (Auto) 7.9 % (13.4-35.0) L 07/24/20 05:17 Luce % (Auto) 5.7 % (0.0-7.3) 07/24/20 05:17 Eos % (Auto) 0.0 % (0.0-4.3) 07/24/20 05:17 Baso % (Auto) 0.2 % (0.0-1.8) 07/24/20 05:17 Lymph # (Auto) 0.5 K/mm3 (1.2-5.4) L 07/24/20 05:17 Luce # (Auto) 0.4 K/mm3 (0.0-0.8) 07/24/20 05:17 Eos # (Auto) 0.0 K/mm3 (0.0-0.4) 07/24/20 05:17 Baso # (Auto) 0.0 K/mm3 (0.0-0.1) 07/24/20 05:17 Seg Neutrophils % 86.2 % (40.0-70.0) H 07/24/20 05:17 Seg Neutrophils # 5.4 K/mm3 (1.8-7.7) 07/24/20 05:17 D-Dimer 407.67 ng/mlDDU (0-234) H 07/27/20 05:55 Sodium 141 mmol/L (137-145) 07/26/20 05:22 Potassium 3.9 mmol/L (3.6-5.0) 07/26/20 05:22 Chloride 104.8 mmol/L (98-107) 07/26/20 05:22 Carbon Dioxide 24 mmol/L (22-30) 07/26/20 05:22 Anion Gap 16 mmol/L 07/26/20 05:22 BUN 30 mg/dL (9-20) H 07/26/20 05:22 Creatinine 0.8 mg/dL (0.8-1.3) 07/26/20 05:22 Estimated GFR > 60 ml/min 07/26/20 05:22 BUN/Creatinine Ratio 38 % 07/26/20 05:22 Glucose 121 mg/dL (75-100) H 07/26/20 05:22 Hemoglobin A1c 6.8 % (4-6) H 07/23/20 11:50 Lactic Acid 1.00 mmol/L (0.7-2.0) 07/23/20 16:10 Calcium 8.4 mg/dL (8.4-10.2) 07/26/20 05:22 Magnesium 1.80 mg/dL (1.7-2.3) 07/23/20 11:50 Iron 26 ug/dL (49-181) L 07/24/20 07:35 TIBC 149 mcg/dL (250-450) L 07/24/20 07:35 % Saturation 17.45 % 07/24/20 07:35 Transferrin 117 mg/dl (180-329) L 07/24/20 07:35 Ferritin 1064.0 ng/mL (30.0-300.0) H 07/27/20 05:55 Total Bilirubin 0.30 mg/dL (0.1-1.2) 07/26/20 05:22 AST 110 units/L (5-40) H 07/26/20 05:22 ALT 169 units/L (7-56) H 07/26/20 05:22 Alkaline Phosphatase 80 units/L (35-129) 07/26/20 05:22 Lactate Dehydrogenase 287 units/L (91-180) H 07/27/20 05:55 Total Creatine Kinase 39 units/L (55-170) L 07/23/20 11:50 Troponin T < 0.010 ng/mL (0.00-0.029) 07/23/20 11:50 C-Reactive Protein 3.60 mg/dL (0.00-1.30) H 07/27/20 05:55 Total Protein 6.9 g/dL (6.3-8.2) 07/26/20 05:22 Albumin 2.8 g/dL (3.9-5) L 07/26/20 05:22 Albumin/Globulin Ratio 0.7 % 07/26/20 05:22 Vitamin B12 688.1 pg/mL (211-911) 07/24/20 07:35 Procalcitonin 0.49 ng/mL (<0.15) 07/23/20 11:50 Urine Color Yellow (Yellow) 07/23/20 15:51 Urine Turbidity Clear (Clear) 07/23/20 15:51 Urine pH 7.0 (5.0-7.0) 07/23/20 15:51 Ur Specific [place] 1.012 (1.003-1.030) 07/23/20 15:51 Urine Protein 30 mg/dl mg/dL (Negative) 07/23/20 15:51 Urine Glucose (UA) Neg mg/dL (Negative) 07/23/20 15:51 Urine Ketones Tr mg/dL (Negative) 07/23/20 15:51 Urine Blood Neg (Negative) 07/23/20 15:51 Urine Nitrite Neg (Negative) 07/23/20 15:51 Urine Bilirubin Neg (Negative) 07/23/20 15:51 Urine Urobilinogen < 2.0 mg/dL (<2.0) 07/23/20 15:51 Ur Leukocyte Esterase Neg (Negative) 07/23/20 15:51 Urine WBC (Auto) < 1.0 /HPF (0.0-6.0) 07/23/20 15:51 Urine RBC (Auto) 4.0 /HPF (0.0-6.0) 07/23/20 15:51 Acetaminophen 5.0 ug/mL (10.0-30.0) L 07/23/20 13:02 Coronavirus (PCR) Positive (Negative) A 07/24/20 10:59 SARS-CoV-2 IgG Ab Reactive (NonReactive) A 07/26/20 15:20 Microbiology: Microbiology 07/23/20 11:50 Peripheral/Venous Blood Culture - Preliminary NO GROWTH AFTER 72 HOURS 07/23/20 11:50 Peripheral/Venous Blood Culture - Preliminary NO GROWTH AFTER 72 HOURS Khan/IV: Voiding Method Toilet IV Catheter Type [Right Wrist] Peripheral IV Active Medications - Current Medications Current Medications: Generic Name Dose Route Start Last Admin Trade Name Freq PRN Reason Stop Dose Admin Acetaminophen 650 mg 07/23/20 23:34 Tylenol PO Q4H PRN Pain MILD(1-3)/Fever >100.5/PHILLIPS Albuterol 2 puff 07/26/20 13:50 Proair IH Q4HRT PRN Shortness Of Breath Ascorbic Acid 1,000 mg 07/24/20 10:00 07/27/20 10:21 Vitamin C PO 1,000 mg BID AZAR Administration Cholecalciferol 10,000 unit 07/24/20 10:00 07/27/20 10:21 Vitamin D3 PO 10,000 unit DAILY AZAR Administration Dexamethasone 6 mg 07/27/20 10:00 07/27/20 10:20 Decadron PO 08/01/20 10:01 6 mg DAILY AZAR Administration Enoxaparin Sodium 70 mg 07/26/20 22:00 07/27/20 10:19 Enoxaparin SUB-Q 70 mg Q12HR AZAR Administration Famotidine 20 mg 07/24/20 10:00 07/27/20 10:21 Pepcid PO 20 mg BID AZAR Administration Hydromorphone HCl 0.5 mg 07/23/20 23:34 07/25/20 18:30 Dilaudid IV 0.5 mg Q3H PRN Administration Pain , Severe (7-10) REMDESIVIR 100 mg/ Sodium 250 mls @ 500 mls/hr 07/25/20 21:00 07/27/20 03:30 Chloride IV 07/28/20 21:29 Infused Q24HR@2100 AZAR Infusion Ceftriaxone Sodium 2 gm in 100 mls @ 200 mls/hr 07/26/20 12:00 07/27/20 10:19 Rocephin/Ns 2 Gm/100 Ml IV 07/28/20 10:29 200 mls/hr Q24HR AZAR Administration Protocol Ondansetron HCl 4 mg 07/23/20 23:34 07/25/20 21:17 Zofran IV 4 mg Q8H PRN Administration Nausea And Vomiting Oxycodone/Acetaminophen 1 tab 07/23/20 23:34 07/25/20 23:03 Percocet 5/325 PO 1 tab Q6H PRN Administration Pain, Moderate (4-6) Sodium Chloride 10 ml 07/24/20 10:00 07/27/20 10:22 Sodium Chloride Flush Syringe 10 Ml IV 10 ml BID AZAR Administration Sodium Chloride 10 ml 07/23/20 23:34 Sodium Chloride Flush Syringe 10 Ml IV PRN PRN LINE FLUSH Sodium Chloride 50 ml 07/24/20 21:00 07/26/20 22:25 Nacl 0.9% IV 07/28/20 21:01 50 ml Q24HR@2100 AZAR Administration Trazodone HCl 50 mg 07/27/20 22:00 Desyrel PO QHS AZAR Zinc Sulfate 220 mg 07/24/20 10:00 07/27/20 10:20 Zinc Sulfate PO 220 mg QDAY AZAR Administration
--- NOTE | 2020-07-27 10:53 | Progress Note ---
Assessment and Plan Patient alert, awake. Sitting up in chair.. Patient is on 2 litres O2. O2 saturation 93%. Patient denies chest pain, shortness of breath . Has slight cough. Patient afebrile and has mild leukocytosis. Patient positive for pereira virus. Chest xray 07/23/20 reported Subtle bilateral airspace opacities as described. Viral infection could be considered. Patients inflammatory markers Serum ferritin 1064 LDH 287 C reactive protein 3.1 D dimer 407.67 Patient is on dexamethsosone, Remdesivir, Ceftriaxone, S/C Lovenox at therapeutic dose. - Patient Problems (1) Acute respiratory failure with hypoxia Current Visit: Yes Status: Acute Plan to address problem: O2 2 litres via nasal canula. Albuterol inhaler 2 puffs po qid prn for shortness of breath. Continue ceftriaxone. Continue dexamethasone. Continue S/C Lovenox. ABGs on 2 litres O2. (2) Bilateral pneumonia Current Visit: Yes Status: Acute Plan to address problem: Patient is on ceftriaxone . (3) Anemia Current Visit: Yes Status: Chronic Qualifiers: Anemia type: unspecified type Qualified Code(s): D64.9 - Anemia, unspecified Plan to address problem: Management as per primary care. (4) COVID-19 virus detected Current Visit: Yes Status: Acute Plan to address problem: Management as per infectious diseases. Subjective Date of service: 07/27/20 Principal diagnosis: COVID Interval history: Patient alert, awake. Sitting up in chair.. Patient is on 2 litres O2. O2 saturation 93%. Patient denies chest pain, shortness of breath . Has slight cough. Patient afebrile and has mild leukocytosis. Patient positive for pereira virus. Chest xray 07/23/20 reported Subtle bilateral airspace opacities as described. Viral infection could be considered. Patients inflammatory markers Serum ferritin 1064 LDH 287 C reactive protein 3.1 D dimer 407.67 Patient is on dexamethsosone, Remdesivir, Ceftriaxone, S/C Lovenox at therapeutic dose. Objective Constitutional: no acute distress, alert Eyes: non-icteric Neck: supple, no lymphadenopathy Effort: mildly labored Ascultation: Bilateral: rales Cardiovascular: regular rate and rhythm Gastrointestinal: normoactive bowel sounds, soft, non-tender Integumentary: normal Extremities: no cyanosis, no edema Neurologic: normal mental status, non-focal exam, pupils equal and round Psychiatric: mood appropriate CBC and BMP: 07/26/20 05:22 07/26/20 05:22 ABG, PT/INR, D-dimer: PT/INR, D-dimer D-Dimer 407.67 ng/mlDDU (0-234) H 07/27/20 05:55 Abnormal lab findings: Abnormal Labs 07/23/20 07/23/20 07/23/20 11:50 11:50 11:50 WBC Hgb Hct Lymph % (Auto) 5.4 L Lymph # (Auto) 0.4 L Seg Neutrophils % 90.0 H D-Dimer 545.57 H Sodium 136 L Potassium 3.5 L Carbon Dioxide BUN Creatinine Glucose 167 H Hemoglobin A1c Calcium 8.2 L Iron TIBC Transferrin Ferritin AST 47 H ALT Lactate Dehydrogenase 291 H Total Creatine Kinase C-Reactive Protein 29.20 H Albumin 2.9 L Acetaminophen Coronavirus (PCR) SARS-CoV-2 IgG Ab 07/23/20 07/23/20 07/23/20 11:50 11:50 11:50 WBC Hgb Hct Lymph % (Auto) Lymph # (Auto) Seg Neutrophils % D-Dimer Sodium Potassium Carbon Dioxide BUN Creatinine Glucose Hemoglobin A1c 6.8 H Calcium Iron TIBC Transferrin Ferritin 1067.0 H AST ALT Lactate Dehydrogenase Total Creatine Kinase 39 L C-Reactive Protein Albumin Acetaminophen Coronavirus (PCR) SARS-CoV-2 IgG Ab 07/23/20 07/24/20 07/24/20 13:02 05:17 05:17 WBC Hgb 10.7 L Hct 31.8 L Lymph % (Auto) 7.9 L Lymph # (Auto) 0.5 L Seg Neutrophils % 86.2 H D-Dimer Sodium Potassium Carbon Dioxide BUN Creatinine 0.7 L Glucose 161 H Hemoglobin A1c Calcium 8.2 L Iron TIBC Transferrin Ferritin AST 45 H ALT Lactate Dehydrogenase Total Creatine Kinase C-Reactive Protein Albumin 3.0 L Acetaminophen 5.0 L Coronavirus (PCR) SARS-CoV-2 IgG Ab 07/24/20 07/24/20 07/25/20 07:35 10:59 05:45 WBC Hgb Hct Lymph % (Auto) Lymph # (Auto) Seg Neutrophils % D-Dimer 1204.50 H Sodium Potassium Carbon Dioxide BUN Creatinine Glucose Hemoglobin A1c Calcium Iron 26 L TIBC 149 L Transferrin 117 L Ferritin AST ALT Lactate Dehydrogenase Total Creatine Kinase C-Reactive Protein Albumin Acetaminophen Coronavirus (PCR) Positive A SARS-CoV-2 IgG Ab 07/25/20 07/25/20 07/25/20 05:45 05:45 05:45 WBC 13.5 H Hgb 11.0 L Hct 33.0 L Lymph % (Auto) Lymph # (Auto) Seg Neutrophils % D-Dimer Sodium Potassium 3.5 L Carbon Dioxide 20 L BUN 23 H Creatinine Glucose 187 H Hemoglobin A1c Calcium 8.3 L Iron TIBC Transferrin Ferritin 1912.0 H AST ALT Lactate Dehydrogenase 434 H Total Creatine Kinase C-Reactive Protein 10.60 H Albumin Acetaminophen Coronavirus (PCR) SARS-CoV-2 IgG Ab 07/26/20 07/26/20 07/26/20 05:22 05:22 15:20 WBC 11.9 H Hgb 10.8 L Hct 32.7 L Lymph % (Auto) Lymph # (Auto) Seg Neutrophils % D-Dimer Sodium Potassium Carbon Dioxide BUN 30 H Creatinine Glucose 121 H Hemoglobin A1c Calcium Iron TIBC Transferrin Ferritin AST 110 H ALT 169 H Lactate Dehydrogenase Total Creatine Kinase C-Reactive Protein Albumin 2.8 L Acetaminophen Coronavirus (PCR) SARS-CoV-2 IgG Ab Reactive A 07/27/20 07/27/20 07/27/20 05:55 05:55 05:55 WBC Hgb Hct Lymph % (Auto) Lymph # (Auto) Seg Neutrophils % D-Dimer 407.67 H Sodium Potassium Carbon Dioxide BUN Creatinine Glucose Hemoglobin A1c Calcium Iron TIBC Transferrin Ferritin 1064.0 H AST ALT Lactate Dehydrogenase 287 H Total Creatine Kinase C-Reactive Protein 3.60 H Albumin Acetaminophen Coronavirus (PCR) SARS-CoV-2 IgG Ab
[2020-07-27] MEDS ORDERED: FUROSEMIDE 40 MG/4 ML INJ IV SCH (11:00)
[2020-07-27] MEDS: REMDESIVIR 100 MG in SODIUM CHLORIDE 0.9% 250ML 250 ML IV SCH (21:48)
[2020-07-27] MEDS: SODIUM CHLORIDE 0.9% 50 ML IVPB IV SCH (21:49)
[2020-07-27] MEDS ORDERED: traZODone 50 MG TAB PO SCH (22:00)
[2020-07-27] MEDS ORDERED: QUEtiapine 25 MG TAB PO ONE (23:50)
[2020-07-28] MEDS ORDERED: SODIUM CHLORIDE 0.9% 250ML 250 ML IV ONE (06:20)
[2020-07-28 06:27] LABS: Hematocrit 32.7 % (35.5-45.6); Hemoglobin 11.1 gm/dl (11.8-15.2); Mean Corpuscular HGB Conc 34 % (32-34); Mean Corpuscular Volume 87 fl (84-94); Platelet Count 260 K/mm3 (140-440); Red Blood Count 3.74 M/mm3 (3.65-5.03); Red Cell Distribution Width 14.7 % (13.2-15.2)
[2020-07-28 06:43] LABS: BUN/Creatinine Ratio 32; Blood Urea Nitrogen 29 mg/dL (9-20); Calcium 8.4 mg/dL (8.4-10.2); Hemolysis Index 2
[2020-07-28 08:07] VITALS: BP 107/61
--- NOTE | 2020-07-28 08:41 | Progress Note ---
Assessment and Plan Cultures: Blood culture negative Urine culture negative SARS CoV2 PCR positive Assessment: 75 years old male with history of asthma admitted on 07/23/2020 secondary to a week history of generalized malaise, cough, shortness of breath. He was diagnosed with COVID-19 as an outpatient: #Severe COVID pneumonia: Chest x-ray showing bilateral infiltrates. Inflammatory markers elevated, improving. Procalcitonin 0.4. #Acute hypoxemic respiratory failure: Initial O2 sat dropped to 92%. improving, now on 2 L nasal cannula #Elevated LFTs: from COVID #Asthma: Likely with exacerbation Recommendations: Continue Dexamethasone 6 mg IV/PO daily for 10 days Continue Remdesivir x 5 days -day 4 of 5 Monitor inflammatory markers - ferritin, Ddimer, CRP, LDH Continue ceftriaxone for 5 days, completed azithromycin, procalcitonin >0.25 n g/mL Monitor liver function test on Remdesivir Continue anticoagulation per System Protocol Prone positioning as possible SARS-CoV-2 IgG positive patient is not a candidate for Covid convalescent plasma Obtain exercise pulse oximeter today, if patient passes test okay to discharge home, if he does not then consider arranging home O2 All laboratory, cultures and imaging were reviewed. At Risk for deterioration. Will follow Laury Moralez MD Infectious Diseases Commercial Interior Design[employer] [facility] [place] [facility] [phone] O [phone] Subjective Date of service: 07/28/20 Principal diagnosis: COVID Interval history: Patient remains on 2 L nasal cannula, no fever Objective - Exam Narrative Exam: Physical Exam: reviewed ED and hospitalist notes, limited due to conservation of PPE and decrease risk of transmission. General appearance: limited due to conservation of PPE Eyes: limited due to conservation of PPE HENT: Atraumatic; limited due to conservation of PPE Lungs: limited due to conservation of PPE CV: limited due to conservation of PPE Abdomen: limited due to conservation of PPE Extremities: limited due to conservation of PPE Skin: limited due to conservation of PPE Psych: limited due to conservation of PPE Neuro: limited due to conservation of PPE - Constitutional Vitals: Vital Signs Temp Pulse Resp BP Pulse Ox 97.6 F 84 18 107/61 96 07/28/20 03:18 07/28/20 03:18 07/28/20 03:18 07/28/20 07:56 07/28/20 03:18 Temperature -Last 24 Hours Temperature 97.6 F Temperature 98.3 F - Labs CBC & Chem 7: 07/28/20 06:00 07/28/20 06:00 Labs: Abnormal lab results 07/28/20 07/28/20 Range/Units 06:00 06:00 Hgb 11.1 L (11.8-15.2) gm/dl Hct 32.7 L (35.5-45.6) % BUN 29 H (9-20) mg/dL Glucose 118 H (75-100) mg/dL
[2020-07-28] MEDS: ENOXAPARIN 80 MG/0.8 ML INJ SUB-Q SCH (10:06)
[2020-07-28] MEDS: ZINC SULFATE 220 MG CAP PO SCH (10:07)
[2020-07-28] MEDS: cefTRIAXone/NS 2 GM/100 ML 2 GM/100 ML BAG IV SCH (10:07)
[2020-07-28] MEDS: ASCORBIC ACID 500 MG TAB PO SCH (10:07)
[2020-07-28] MEDS: FAMOTIDINE 20 MG TAB PO SCH (10:07)
[2020-07-28] MEDS: CHOLECALCIFEROL (VIT D3) 5,000 UNIT TAB PO SCH (10:08)
[2020-07-28] MEDS: DEXAMETHASONE 4 MG TAB PO SCH (10:08)
--- NOTE | 2020-07-28 12:49 | Discharge Summary ---
Providers - Providers Date of Admission: 07/23/20 13:00 Attending physician: JR LE MD 07/23/20 23:34 Consult to Physician [CONS] Routine Comment: Consulting Provider: KARINA LEE Physician Instructions: Reason For Exam: Bilateral pneumonia 07/25/20 07:50 Consult to Physician [CONS] Routine Comment: Consulting Provider: NOA MARTINEZ Physician Instructions: Reason For Exam: RESPIRATORY FAILURE- COVID 19 Primary care physician: VP DIRECTOR OF FINANCE Hospitalization Reason for admission: covid 19 Condition: Stable Hospital course: 75-year-old [place] male diagnosed significant past medical history comes in for increasing shortness of breath and generalized weakness. 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 Patient has generalized malaise and weakness. Patient was brought in by EMS because of shortness of breath. Patient was hypoxic with a saturation of 88% in the field. With oxygenation supplements oxygen O2 sats improved to 93--94. Language barrier present. Could not get a proper history from the patient. Tried to use the director of community life service but was kept on hold for a long time. No fever or chills at this point. 07/24: This morning patient sitting up reported chills and shaking making him come to the hospital, continue current management for COVID-19. Will give Lasix 20 mg IV x1. Continue to monitor inflammatory markers while awaiting ID input. Will initiate remdesivir due to hypoxia. 07/25: Noted on 6 liters, will give additional lasix today, change to full a nticoagulation, will obtain CT chest and Doppler lower ext if no improvement in 24 to 48 hrs. Will consult pulmonary. If unable to wean oxygen down today will change to vapotherm. Spoke and updated patients Niece 07/26 patient is alert and oriented. Feels short of breath with mild effort and also complains of severe insomnia and states that he has not slept in 2 days Denies cough. States he has asthma. Denies fever or chills. He does complain of generalized weakness. ID consult note and lab results reviewed 07/27: Continue current management. Will give patient trazodone for sleep. He is less anxious today. We will also give a dose of Lasix. Of asked the nursing staff to perform home oxygen evaluation as he is getting close to completion of remdesivir. Continue to monitor inflammatory markers 07/28: Patient clinically improved, will need 2 liters of oxygen on discharge and this has been arranged and discussed. I have also discussed isolation precautions to ensure his family is kept safe. (1) Acute respiratory failure with hypoxia Current Visit: Yes Status: Acute Plan to address problem: Patient on oxygen supplements. initailly requiring minimal oxygen supplements 3 to 5 L Patient admitted in isolation Possible coronavirus infection Coronavirus PCR requested (2) Bilateral pneumonia Current Visit: Yes Status: Acute Plan to address problem: For the time being treated as community-acquired pneumonia Patient initiated on IV ceftriaxone and IV Zithromax. (3) Covid Pneumonia Current Visit: Yes Status: Acute Plan to address problem: Check coronavirus PCR Patient is apparently coronavirus PCR +4 days ago on Sunday which is 07/19/2020 (4) Hyponatremia Current Visit: Yes Status: Acute Plan to address problem: Very mild Trend the sodium levels No IV fluids were given because of the possibility of coronavirus (5) Anemia Current Visit: Yes Status: Chronic Qualifiers: Anemia type: unspecified type Qualified Code(s): D64.9 - Anemia, unspecified Plan to address problem: Anemia work-up Mild Protein Calorie malnutrition No evidence of Sepsis Disposition: [id number] HOME UNDER HOME [facility] Time spent for discharge: 35 mins Core Measure Documentation - Palliative Care Palliative Care/ Comfort Measures: Not Applicable - Core Measures Any of the following diagnoses?: none Exam - Physical Exam Narrative exam: General appearance: Present: no distress, well-nourished - EENT Eyes: Present: PERRL ENT: hearing intact, clear oral mucosa - Neck Neck: Present: supple, normal ROM - Respiratory Respiratory effort: normal Respiratory: bilateral: CTA, diminished - Cardiovascular Heart rate: 78 Rhythm: regular Heart Sounds: Present: S1 & S2. Absent: rub, click - Extremities Extremities: pulses symmetrical, No edema Peripheral Pulses: within normal limits - Abdominal General gastrointestinal: Present: soft, non-tender, non-distended, normal bowel sounds Male genitourinary: Present: normal - Integumentary Integumentary: Present: clear, warm, dry - Musculoskeletal Musculoskeletal: gait normal, strength equal bilaterally - Psychiatric Psychiatric: appropriate mood/affect, intact judgment & insight - Neurologic Neurologic: CNII-XII intact, moves all extremities - Constitutional Vitals: Temp Pulse Resp BP Pulse Ox 97.6 F 84 18 107/61 96 07/28/20 03:18 07/28/20 03:18 07/28/20 03:18 07/28/20 07:56 07/28/20 03:18 Plan Activity: advance as tolerated, fall precautions Diet: low fat Special Instructions: record daily weights, record daily BP diary, home oxygen via (nasal cannula @ 2 liters per minute) Follow up with: PRIMARY CAREMD [Primary Care Provider] - 3-5 Days LISBET VASQUEZ MD [Staff Physician] - 7 Days MAGED HICKS MD [Staff Physician] - 7 Days Prescriptions: dexAMETHasone [Dexamethasone] 6 mg PO DAILY #5 tablet Ascorbic Acid [Vitamin C] 1,000 mg PO BID #60 tablet Cholecalciferol (Vitamin D3) [Vitamin D3] 5,000 unit PO DAILY #14 tablet Zinc Sulfate 220 mg PO QDAY #30 capsule
--- NOTE | 2020-07-28 12:58 | Progress Note ---
Assessment and Plan Patient alert, awake. Sitting up in bed and eating his lunch. Patient is on 2 litres O2. O2 saturation 93%. Patient denies chest pain, shortness of breath . Has slight cough. Patient afebrile and has mild leukocytosis. Patient positive for pereira virus. Chest xray 07/23/20 reported Subtle bilateral airspace opacities as described. Viral infection could be considered. Patients inflammatory markers Serum ferritin 1064 LDH 287 C reactive protein 3.1 D dimer 407.67 Patient is on dexamethsosone, Remdesivir, Ceftriaxone, S/C Lovenox at t herapeutic dose. - Patient Problems (1) Acute respiratory failure with hypoxia Status: Acute Plan to address problem: O2 2 litres via nasal canula. Albuterol inhaler 2 puffs po qid prn for shortness of breath. Continue ceftriaxone. Continue dexamethasone. Continue S/C Lovenox. (2) Bilateral pneumonia Status: Acute Plan to address problem: Patient is on ceftriaxone . (3) Anemia Status: Chronic Qualifiers: Anemia type: unspecified type Qualified Code(s): D64.9 - Anemia, unspecified Plan to address problem: Management as per primary care. (4) COVID-19 virus detected Status: Acute Plan to address problem: Management as per infectious diseases. Subjective Date of service: 07/28/20 Principal diagnosis: COVID Interval history: Patient alert, awake. Sitting up in bed and eating his lunch. Patient is on 2 litres O2. O2 saturation 93%. Patient denies chest pain, shortness of breath . Has slight cough. Patient afebrile and has mild leukocytosis. Patient positive for pereira virus. Chest xray 07/23/20 reported Subtle bilateral airspace opacities as described. Viral infection could be considered. Patients inflammatory markers Serum ferritin 1064 LDH 287 C reactive protein 3.1 D dimer 407.67 Patient is on dexamethsosone, Remdesivir, Ceftriaxone, S/C Lovenox at therapeutic dose. Objective Vital Signs - 12hr 07/28/20 07/28/20 03:18 07:56 Temperature 97.6 F Pulse Rate 84 Respiratory 18 Rate Blood Pressure 89/58 107/61 O2 Sat by Pulse 96 Oximetry Constitutional: no acute distress, alert Eyes: non-icteric Neck: supple, no lymphadenopathy Effort: mildly labored Ascultation: Bilateral: rales Cardiovascular: regular rate and rhythm Gastrointestinal: normoactive bowel sounds, soft, non-tender Integumentary: normal Extremities: no cyanosis, no edema Neurologic: normal mental status, non-focal exam, pupils equal and round Psychiatric: mood appropriate CBC and BMP: 07/28/20 06:00 07/28/20 06:00 ABG, PT/INR, D-dimer: PT/INR, D-dimer D-Dimer 407.67 ng/mlDDU (0-234) H 07/27/20 05:55 Abnormal lab findings: Abnormal Labs 07/23/20 07/23/20 07/23/20 11:50 11:50 11:50 WBC Hgb Hct Lymph % (Auto) 5.4 L Lymph # (Auto) 0.4 L Seg Neutrophils % 90.0 H D-Dimer 545.57 H Sodium 136 L Potassium 3.5 L Carbon Dioxide BUN Creatinine Glucose 167 H Hemoglobin A1c Calcium 8.2 L Iron TIBC Transferrin Ferritin AST 47 H ALT Lactate Dehydrogenase 291 H Total Creatine Kinase C-Reactive Protein 29.20 H Albumin 2.9 L Acetaminophen Coronavirus (PCR) SARS-CoV-2 IgG Ab 07/23/20 07/23/20 07/23/20 11:50 11:50 11:50 WBC Hgb Hct Lymph % (Auto) Lymph # (Auto) Seg Neutrophils % D-Dimer Sodium Potassium Carbon Dioxide BUN Creatinine Glucose Hemoglobin A1c 6.8 H Calcium Iron TIBC Transferrin Ferritin 1067.0 H AST ALT Lactate Dehydrogenase Total Creatine Kinase 39 L C-Reactive Protein Albumin Acetaminophen Coronavirus (PCR) SARS-CoV-2 IgG Ab 07/23/20 07/24/20 07/24/20 13:02 05:17 05:17 WBC Hgb 10.7 L Hct 31.8 L Lymph % (Auto) 7.9 L Lymph # (Auto) 0.5 L Seg Neutrophils % 86.2 H D-Dimer Sodium Potassium Carbon Dioxide BUN Creatinine 0.7 L Glucose 161 H Hemoglobin A1c Calcium 8.2 L Iron TIBC Transferrin Ferritin AST 45 H ALT Lactate Dehydrogenase Total Creatine Kinase C-Reactive Protein Albumin 3.0 L Acetaminophen 5.0 L Coronavirus (PCR) SARS-CoV-2 IgG Ab 07/24/20 07/24/20 07/25/20 07:35 10:59 05:45 WBC Hgb Hct Lymph % (Auto) Lymph # (Auto) Seg Neutrophils % D-Dimer 1204.50 H Sodium Potassium Carbon Dioxide BUN Creatinine Glucose Hemoglobin A1c Calcium Iron 26 L TIBC 149 L Transferrin 117 L Ferritin AST ALT Lactate Dehydrogenase Total Creatine Kinase C-Reactive Protein Albumin Acetaminophen Coronavirus (PCR) Positive A SARS-CoV-2 IgG Ab 07/25/20 07/25/20 07/25/20 05:45 05:45 05:45 WBC 13.5 H Hgb 11.0 L Hct 33.0 L Lymph % (Auto) Lymph # (Auto) Seg Neutrophils % D-Dimer Sodium Potassium 3.5 L Carbon Dioxide 20 L BUN 23 H Creatinine Glucose 187 H Hemoglobin A1c Calcium 8.3 L Iron TIBC Transferrin Ferritin 1912.0 H AST ALT Lactate Dehydrogenase 434 H Total Creatine Kinase C-Reactive Protein 10.60 H Albumin Acetaminophen Coronavirus (PCR) SARS-CoV-2 IgG Ab 07/26/20 07/26/20 07/26/20 05:22 05:22 15:20 WBC 11.9 H Hgb 10.8 L Hct 32.7 L Lymph % (Auto) Lymph # (Auto) Seg Neutrophils % D-Dimer Sodium Potassium Carbon Dioxide BUN 30 H Creatinine Glucose 121 H Hemoglobin A1c Calcium Iron TIBC Transferrin Ferritin AST 110 H ALT 169 H Lactate Dehydrogenase Total Creatine Kinase C-Reactive Protein Albumin 2.8 L Acetaminophen Coronavirus (PCR) SARS-CoV-2 IgG Ab Reactive A 07/27/20 07/27/20 07/27/20 05:55 05:55 05:55 WBC Hgb Hct Lymph % (Auto) Lymph # (Auto) Seg Neutrophils % D-Dimer 407.67 H Sodium Potassium Carbon Dioxide BUN Creatinine Glucose Hemoglobin A1c Calcium Iron TIBC Transferrin Ferritin 1064.0 H AST ALT Lactate Dehydrogenase 287 H Total Creatine Kinase C-Reactive Protein 3.60 H Albumin Acetaminophen Coronavirus (PCR) SARS-CoV-2 IgG Ab 07/28/20 07/28/20 06:00 06:00 WBC Hgb 11.1 L Hct 32.7 L Lymph % (Auto) Lymph # (Auto) Seg Neutrophils % D-Dimer Sodium Potassium Carbon Dioxide BUN 29 H Creatinine Glucose 118 H Hemoglobin A1c Calcium Iron TIBC Transferrin Ferritin AST ALT Lactate Dehydrogenase Total Creatine Kinase C-Reactive Protein Albumin Acetaminophen Coronavirus (PCR) SARS-CoV-2 IgG Ab
== END 2020-07-28 15:40 | disposition home or self-care (01) | DRG 177 ==
LOC: EDSEX → ED 10:57 → 3A 13:00 → OBSVTOIN 13:00 → 3A 19:28
PROVIDERS: ADMIT Internal Medicine; ATTEND Internal Medicine
PROC: XW033E5 Introduction of Remdesivir Anti-infective into Peripheral Vein, Percutaneous Approach, New Technology Group 5 (ICD-10-PCS; principal; 2020-07-24)
DX: U07.1 COVID-19 (principal); J12.89 Other viral pneumonia; J96.01 Acute respiratory failure with hypoxia; E87.1 Hypo-osmolality and hyponatremia; J45.909 Unspecified asthma, uncomplicated; E87.6 Hypokalemia; D64.9 Anemia, unspecified; Z82.49 Family history of ischemic heart disease and other diseases of the circulatory system; Z79.899 Other long term (current) drug therapy; Z79.891 Long term (current) use of opiate analgesic; Z79.01 Long term (current) use of anticoagulants
CPT/HCPCS: 36415; 71045; 80048; 80053; 80320; 81001; 82140; 82550; 82607; 82728; 82747; 83036; 83550; 83615; 83735; 84145; 84484; 85025; 85027; 85379; 86140; 87040; 87086; 94760; G0378; G0480; J0456; J0696; J1100; J1170; J1650; J1940; J2405; J7040; J7050; J8540; U0003